=== PATIENT | male | born 1965 | race Caucasian/White ===

== ENCOUNTER → 2016-05-31 | Outpatient (CLI) | payer OTHER | END | disposition home or self-care (01) | LOC: LABWHC1 14:50 | PROVIDERS: ATTEND Student in an Organized Health Care Education/Training Program | DX: L89.324 Pressure ulcer of left buttock, stage 4 (principal) | CPT/HCPCS: 36415; 86141 ==

== ENCOUNTER → 2016-06-20 | Outpatient (CLI) | payer OTHER ==
[2016-06-20 10:42] LABS: Blood Urea Nitrogen 21 mg/dL (9-20); Non-African American GFR(MDRD) >60 (>60 ml/min/1.73 sqM)
== END | disposition home or self-care (01) ==
LOC: RADMRIMAIN 07:08
PROVIDERS: ATTEND Family Medicine
DX: M86.8X8 Other osteomyelitis, other site (principal); Z53.9 Procedure and treatment not carried out, unspecified reason
CPT/HCPCS: 36415; 82565; 84520

== ENCOUNTER → 2016-06-21 | Outpatient (CLI) | payer OTHER ==
--- NOTE | 2016-06-22 11:59 | MR ---
MR pelvis with and without contrast HISTORY: Osteomyelitis Multiplanar multisequence and postcontrast images through the pelvis following 19 cc MultiHance IV. Correlation to prior pelvis MRI 27 June 2015 Abnormal signal again noted within the initial tuberosity on the left, there is abnormal enhancement at this level as on prior exam, skin changes are again noted. Adenopathy in the left groin shows a si milar appearance. IMPRESSION: Findings compatible with osteomyelitis similar to prior exam.
== END | disposition home or self-care (01) ==
LOC: RADMRIMAIN 14:31
PROVIDERS: ATTEND Family Medicine
DX: M86.8X8 Other osteomyelitis, other site (principal)
CPT/HCPCS: 72197; A9577

== ENCOUNTER 2016-10-16 10:26 | Day surgery (SDC) | payer OTHER ==
[2016-10-11 16:11] VITALS: BMI 30.1
[~2016-10-16 10:26] MED LIST: DEXAMETHASONE SOD PHOSPHATE 10 MG/ML 1 ML VIAL IV ONE; HYDROmorphone 1 MG/ML 1 ML SYRINGE IVP PRN; LACTATED RINGERS 1,000 ML IV SCH; ONDANSETRON 4 MG/2 ML VIAL IVP ONE; Pre Op ABX Message 1 EACH MISC MISCELLANE ONE
[2016-10-16] MEDS ORDERED: LIDOCAINE 1% 20 ML VIAL (10MG/ML) FOR IV START INTRADERMA ONE (10:31)
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
[2016-10-16] MEDS ORDERED: LIDOCAINE 1% INJ 10MG/ML (20 ML MDV) ONE (11:30)
[2016-10-16] MEDS ORDERED: GLYCOPYRROLATE 0.2 MG/ML 2 ML VIAL ONE (11:30)
[2016-10-16] MEDS ORDERED: PROPOFOL 10 MG/ML 20 ML VIAL IV ONE (11:30)
[2016-10-16] MEDS ORDERED: MIDAZOLAM 2 MG/2 ML VIAL ONE (11:30)
[2016-10-16] MEDS ORDERED: KETAMINE 10 MG/ML 20 ML VIAL ONE (11:30)
[2016-10-16] MEDS ORDERED: fentaNYL (PF) 50 MCG/ML 2 ML AMP ONE (11:30)
--- NOTE | 2016-10-16 12:02 | P.WCSRGD ---
[facility]tr Surgical Debridement Date of service: 10/16/2016 Surgeon: Alex Pre-and postop diagnosis: Stage IV decubitus involving left ischium Type of debridement: Excisional surgical Chief complaint: ulcer of left buttocks Anesthesia: 2% lidocaine gel applied to the ulcer Signs of infection: Minimal redness Extent of necrotic, devitalized or non-viable tissue: Nonviable soft tissue and bone Other material in the wound that is expected to inhibit healing or promote adjacent tissue breakdown: Same Degree of epithelialization: % Method and instrument: Surgical debridement with sharp curette and rongeur Character of the wound after debridement: Clean bloody subcutaneous bed with bone at the base Description of necrotic material present: Bone and nonviable soft tissue Description of tissue removed: Same Pre-debridement measurement: 2 x 2 cm and 2.5 cm in depth Postoperative debridement measurement: 2.2 cm and 2.5 cm in depth. Specimens were sent for cultures Control of bleeding:Bleeding was easily controlled with saline moistened gauze and light pressure Post debridement dressing: Opticel silver Patient tolerated procedure well
[2016-10-16 12:21] VITALS: TEMP 97.8
[2016-10-16] MEDS ORDERED: HYDROmorphone 1 MG/ML 1 ML SYRINGE IVP ONE ×3 (15:00→15:31)
[2016-10-16 15:44] VITALS: RESP 18
[2016-10-16] MEDS ORDERED: HYDROcodone/APAP 5-325MG 1 EACH TAB PO ONE (17:44)
[2016-10-16 18:55] VITALS: BP 152/71; PULSE 88
== END 2016-10-16 18:45 | disposition home or self-care (01) ==
LOC: OR 10:26
PROVIDERS: ATTEND Thoracic Surgery (Cardiothoracic Vascular Surgery)
DX: L89.324 Pressure ulcer of left buttock, stage 4 (principal); G82.20 Paraplegia, unspecified; Z99.3 Dependence on wheelchair; I25.10 Atherosclerotic heart disease of native coronary artery without angina pectoris; Z95.5 Presence of coronary angioplasty implant and graft; I10 Essential (primary) hypertension; Z86.14 Personal history of Methicillin resistant Staphylococcus aureus infection; Z90.5 Acquired absence of kidney; Z79.899 Other long term (current) drug therapy; Z88.0 Allergy status to penicillin; Z87.891 Personal history of nicotine dependence
CPT/HCPCS: 87070; 87205; 87075; 11044; J1100; J2405; J1170

== ENCOUNTER 2016-11-28 11:27 | Inpatient (IN) | payer OTHER ==
[2016-11-28 12:53] LABS: Basophils # (A) 0.1 k/uL (0-0.2); Basophils % (A) 1 %; CH 29.5; CHCM 32.7; Eosinophils # (A) 0.1 k/uL (0-0.7); Eosinophils % (A) 1 %; HCT 44.6 % (39.0-53.0); HDW 2.45; Luc # (Auto) 0.27; Luc % (Auto) 2; Lymphocytes # (A) 1.9 k/uL (1.0-4.8); Lymphocytes % (A) 17 %; MCH 28.5 pg (25.0-35.0); MCHC 31.5 g/dL (31.0-37.0); MCV 90.6 fL (80.0-100.0); Mean Platelet Volume 7.4; Monocytes # (A) 0.5 k/uL (0-1.0); Monocytes % (A) 5 %; Neutrophils # (A) 8.3 k/uL (1.3-7.7); Neutrophils % (A) 74 %; RBC 4.93 m/uL (4.30-5.90); RDW 15.5 % (11.5-15.5); WBC 11.2 k/uL (3.8-10.6); WBC (Perox) 10.34
[2016-11-28 13:14] LABS: ALT 31 U/L (21-72); AST 21 U/L (17-59); Alkaline Phosphatase 92 U/L (38-126); Anion Gap 9 mmol/L; Blood Urea Nitrogen 19 mg/dL (9-20); Calcium 8.9 mg/dL (8.4-10.2); Carbon Dioxide 25 mmol/L (22-30); Chloride 105 mmol/L (98-107); Glucose 93 mg/dL (74-99); Magnesium 1.9 mg/dL (1.6-2.3); Non-African American GFR(MDRD) >60 (>60 ml/min/1.73 sqM); Potassium 4.4 mmol/L (3.5-5.1); Sodium 139 mmol/L (137-145); Total Bilirubin 0.7 mg/dL (0.2-1.3); Total Protein 6.8 g/dL (6.3-8.2)
[2016-11-28 13:39] LABS: Partial Thromboplastin Time 24.8 sec (22.0-30.0); Prothrombin Time 10.1 sec (9.0-12.0)
--- NOTE | 2016-11-28 13:39 | XR ---
EXAMINATION TYPE: XR chest 2V DATE OF EXAM: 11/28/2016 COMPARISON: 10/07/2013 TECHNIQUE: PA and lateral views submitted. HISTORY: Chest pain FINDINGS: The lungs are clear and there is no pneumothorax, pleural effusion, or focal pneumonia. Hypertrophi c and degenerative change of the spine. Postsurgical change overlying the upper chest. Arthropathy of the shoulders. No overt failure. Biapical pleural thickening. IMPRESSION: 1. No acute process. Stable cardiomegaly.
--- NOTE | 2016-11-28 13:41 | XR ---
EXAMINATION TYPE: XR foot complete LT DATE OF EXAM: 11/28/2016 COMPARISON: NONE HISTORY: Foot swelling TECHNIQUE: Three views are submitted. FINDINGS: Diffuse osteopenia noted with arthropathy of the first MTP joint. There is previous surgery involving the third digit suggestive amputation. Correlate clinically. Soft tissue edema noted diffusely. No d efinite destructive changes. No acute fracture. IMPRESSION: 1. Diffuse soft tissue edema with no acute osseous abnormality. Correlate for cellulitis or nonspecif ic soft tissue edema.
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
--- NOTE | 2016-11-28 14:36 | US ---
EXAMINATION TYPE: US venous doppler duplex LE BI DATE OF EXAM: 11/28/2016 2:15 PM COMPARISON: 10/07/2013 CLINICAL HISTORY: Swelling. SIDE PERFORMED: Bilateral TECHNIQUE: The lower extremity deep venous system is examined utilizing real time linear array sonog roque with graded compression, doppler sonography and color-flow sonography. VESSELS IMAGED: External Iliac Vein (EIV) Common Femoral Vein Deep Femoral Vein Greater Saphenous Vein * Femoral Vein Popliteal Vein Small Saphenous Vein * Proximal Calf Veins (* superficial vessels) Right Leg: Negative for DVT as visualized Left Leg: Negative for DVT as visualized IMPRESSION: Grayscale, color doppler, spectral doppler imaging performed of the deep veins of the lo wer extremities. There is normal flow, compressibility, vascular waveforms. No evidence of deep armen ous thrombosis bilaterally.
[2016-11-28] MEDS ORDERED: FUROSEMIDE 10 MG/ML 10 ML VIAL IV STA (14:59)
[2016-11-28] MEDS ORDERED: SULFAMETH-TMP DS STARTER PACK 2 TAB BTL PO STA (15:03)
[2016-11-28] MEDS ORDERED: LEVOFLOXACIN 750MG-D5W PMX 750 MG in DEXTROSE/WATER 1 150ML.BAG IVPB STA (15:56)
[2016-11-28] MEDS ORDERED: LORazepam 2 MG/ML SYRINGE IV PRN (15:58)
[2016-11-28] MEDS ORDERED: NALOXONE 0.4 MG/ML 1 ML VIAL IV PRN (15:58)
[2016-11-28] MEDS ORDERED: ONDANSETRON 4 MG/2 ML VIAL IVP PRN (15:58)
[2016-11-28] MEDS: SODIUM CHLORIDE 0.9% 1,000 ML IV SCH (16:28)
[2016-11-28] MEDS: KETOROLAC 30 MG/ML 1 ML VIAL IVP PRN ×2 (16:34→23:56)
[2016-11-28 18:40] VITALS: BMI 29.4
[2016-11-28] MEDS: LINEZOLID 600 MG TAB PO SCH (22:25)
[2016-11-28] MEDS: OXYBUTYNIN CHLORIDE 5 MG TAB PO SCH (22:26)
[2016-11-28] MEDS: DOXAZOSIN 1 MG TAB PO SCH (22:26)
[2016-11-28] MEDS: METOPROLOL TARTRATE 50 MG TAB PO SCH (22:26)
[2016-11-28] MEDS: ACETAMINOPHEN TAB 325 MG TAB PO PRN (23:46)
[2016-11-28] MEDS: MORPHINE SULFATE 4 MG/ML SYRINGE IV PRN (23:49)
[2016-11-29] MEDS: SODIUM CHLORIDE 0.9% 1,000 ML IV SCH ×2 (06:03→10:23)
[2016-11-29] MEDS: KETOROLAC 30 MG/ML 1 ML VIAL IVP PRN ×2 (08:46→23:59)
[2016-11-29] MEDS: ENOXAPARIN 40 MG/0.4 ML SYRINGE SQ SCH (08:48)
[2016-11-29] MEDS: amLODIPine 5 MG TAB PO SCH (08:48)
[2016-11-29] MEDS: LINEZOLID 600 MG TAB PO SCH (08:48)
[2016-11-29] MEDS: LISINOPRIL 20 MG TAB PO SCH (08:48)
[2016-11-29] MEDS: PANTOPRAZOLE 40 MG/10 ML VIAL IV SCH (08:49)
[2016-11-29] MEDS: METOPROLOL TARTRATE 50 MG TAB PO SCH ×2 (08:49→20:03)
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
[2016-11-29] MEDS: COLLAGENASE 250 UNIT/GM OINTMENT 30 GM TUBE TOPICAL SCH (17:23)
[2016-11-29] MEDS: ceFAZolin 2 GM in SODIUM CHLORIDE 0.9% 100 ML IVPB SCH ×2 (17:23→23:53)
[2016-11-29] MEDS: FUROSEMIDE 10 MG/ML 2 ML VIAL IV SCH (20:03)
[2016-11-29] MEDS: DOXAZOSIN 1 MG TAB PO SCH (20:03)
[2016-11-29] MEDS: OXYBUTYNIN CHLORIDE 5 MG TAB PO SCH (20:04)
[2016-11-29] MEDS: ACETAMINOPHEN TAB 325 MG TAB PO PRN (20:04)
[2016-11-29] MEDS: MORPHINE SULFATE 4 MG/ML SYRINGE IV PRN (20:04)
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
[2016-11-30] MEDS: ceFAZolin 2 GM in SODIUM CHLORIDE 0.9% 100 ML IVPB SCH ×3 (08:35→23:32)
[2016-11-30] MEDS: PANTOPRAZOLE 40 MG/10 ML VIAL IV SCH (08:35)
[2016-11-30] MEDS: FUROSEMIDE 10 MG/ML 2 ML VIAL IV SCH ×2 (08:35→21:41)
[2016-11-30] MEDS: SODIUM CHLORIDE 0.9% 1,000 ML IV SCH ×2 (08:36→22:21)
[2016-11-30] MEDS: ENOXAPARIN 40 MG/0.4 ML SYRINGE SQ SCH (08:36)
[2016-11-30] MEDS: amLODIPine 5 MG TAB PO SCH (08:36)
[2016-11-30] MEDS: LISINOPRIL 20 MG TAB PO SCH (08:36)
[2016-11-30] MEDS: COLLAGENASE 250 UNIT/GM OINTMENT 30 GM TUBE TOPICAL SCH (08:36)
[2016-11-30] MEDS: METOPROLOL TARTRATE 50 MG TAB PO SCH ×2 (08:36→21:41)
[2016-11-30] MEDS: MORPHINE SULFATE 4 MG/ML SYRINGE IV PRN ×3 (08:39→18:40)
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
[2016-11-30 08:46] LABS: Basophils # (A) 0.1 k/uL (0-0.2); Basophils % (A) 1 %; CH 29.2; CHCM 32.2; Eosinophils # (A) 0.1 k/uL (0-0.7); Eosinophils % (A) 2 %; HCT 40.7 % (39.0-53.0); HDW 2.35; HGB 12.6 gm/dL (13.0-17.5); Luc # (Auto) 0.23; Luc % (Auto) 3; Lymphocytes % (A) 29 %; MCH 28.3 pg (25.0-35.0); MCV 91.2 fL (80.0-100.0); Mean Platelet Volume 7.8; Monocytes # (A) 0.4 k/uL (0-1.0); Monocytes % (A) 5 %; Neutrophils # (A) 4.1 k/uL (1.3-7.7); Neutrophils % (A) 60 %; RBC 4.46 m/uL (4.30-5.90); RDW 15.1 % (11.5-15.5); WBC 6.9 k/uL (3.8-10.6); WBC (Perox) 6.17
[2016-11-30 09:19] LABS: ALT 31 U/L (21-72); AST 17 U/L (17-59); Alkaline Phosphatase 72 U/L (38-126); Anion Gap 6 mmol/L; Blood Urea Nitrogen 27 mg/dL (9-20); Calcium 8.4 mg/dL (8.4-10.2); Carbon Dioxide 28 mmol/L (22-30); Chloride 104 mmol/L (98-107); Glucose 87 mg/dL (74-99); Non-African American GFR(MDRD) >60 (>60 ml/min/1.73 sqM); Potassium 4.8 mmol/L (3.5-5.1); Sodium 138 mmol/L (137-145); Total Bilirubin 0.4 mg/dL (0.2-1.3); Total Protein 6.1 g/dL (6.3-8.2)
--- NOTE | 2016-11-30 09:26 | ECHOF ---
Referral Reason:lower ext swelling MEASUREMENTS -------- HEIGHT: 152.4 cm WEIGHT: 93.0 kg BP: RVIDd: 2.9 cm (< 3.3) IVSd: 1.6 cm (0.6 - 1.1) LVIDd: 4.3 cm (3.9 - 5.3) LVPWd: 1.7 cm (0.6 - 1.1) IVSs: 1.5 cm LVIDs: 3.1 cm LVPWs: 1.5 cm LA Diam: 2.8 cm (2.7 - 3.8) Ao Diam: 3.2 cm (2.0 - 3.7) AV Cusp: 1.9 cm (1.5 - 2.6) LA Diam: 3.0 cm (2.7 - 3.8) MV EXCURSION: 15.662 mm (> 18.000) MV EF SLOPE: 107 mm/s (70 - 150) EPSS: 0.2 cm MV E Huseyin: 0.98 m/s MV DecT: 266 ms MV A Huseyin: 1.09 m/s MV E/A Ratio: 0.89 RAP: 5.00 mmHg RVSP: 27.36 mmHg FINDINGS -------- Sinus rhythm. This was a technically difficult study with suboptimal apical views. There is mild concentric left ventricular hypertrophy. Overall left ventricular systolic function is normal with, an EF between 55 - 60 %. The right ventricle is normal in size. The left atrial size is normal. The right atrial size is normal. There is mild aortic valve sclerosis. There is no evidence of aortic regurgitation. Mild mitral annular calcification present. Mild mitral regurgitation is present. Mild tricuspid regurgitation present. There is no evidence of pulmonary hypertension. The right ventricular systolic pressure, as measured by Doppler, is 27.36mmHg. There is no pulmonic regurgitation present. The aortic root size is normal. Echo free space may represent effusion or a pericardial fat pad. CONCLUSIONS -------- 1. This was a technically difficult study with suboptimal apical views. 2. Echo free space may represent effusion or a pericardial fat pad. 3. There is mild concentric left ventricular hypertrophy. 4. Overall left ventricular systolic function is normal with, an EF between 55 - 60 %. 5. There is mild aortic valve sclerosis. 6. Mild mitral annular calcification present. 7. Mild mitral regurgitation is present. 8. Mild tricuspid regurgitation present. 9. There is no evidence of pulmonary hypertension. 10. The right ventricular systolic pressure, as measured by Doppler, is 27.36mmHg. COMMODITY LEAD: Herminia Jaeger RDCS
--- NOTE | 2016-11-30 17:23 | P.PN ---
Progress Note - Text Consultation was requested for the patient to assess competency, and reviewing the chart the patient this afternoon spoke with the social science instructor and signed papers to obtain a public guardian. I will not complete the consult on this patient, if there is a reason for a psychiatric consultation please reconsult me.
[2016-11-30] MEDS: OXYBUTYNIN CHLORIDE 5 MG TAB PO SCH (21:41)
[2016-11-30] MEDS: DOXAZOSIN 1 MG TAB PO SCH (21:41)
[2016-11-30] MEDS: KETOROLAC 30 MG/ML 1 ML VIAL IVP PRN (21:43)
--- NOTE | 2016-12-01 06:24 | P.PN ---
Progress Note - Text This is a progress note from November 30. This patient was admitted with increasing pedal swelling and cellulitis. We're asked to see the patient to rule out congestive heart failure. Patient chest x-ray did not reveal any significant CHF. His BNP is not elevated. Echo Cardigan showed preserved LV function without any significant valvular abnormalities. It's felt clinically that his edema is non-cardiogenic. If symptoms patient is responding to diuretic therapy. At this point there is no need for any cardiac intervention. Continue current management. Physical examination reveals a gentleman who is paraplegic. Patient seemed to be lying down comfortably without any significant dyspnea to distress. Patient still has significant edema. Heart sounds are regular. Lung examination is difficult but therapy and doesn't appear to be any Sigmund wheezing. Vital signs are reviewed. Final impression: #1. Noncardiogenic edema. #2. Paraplegia #3. Cellulitis # 4 hypertension. Plan: Continue with current management.No specific cardiac intervention is needed
[2016-12-01] MEDS: PANTOPRAZOLE 40 MG TABLET PO SCH (07:56)
[2016-12-01] MEDS: amLODIPine 5 MG TAB PO SCH (07:56)
[2016-12-01] MEDS: METOPROLOL TARTRATE 50 MG TAB PO SCH ×2 (07:56→20:23)
[2016-12-01] MEDS: LISINOPRIL 20 MG TAB PO SCH (07:56)
[2016-12-01] MEDS: FUROSEMIDE 10 MG/ML 2 ML VIAL IV SCH ×2 (07:57→20:23)
[2016-12-01] MEDS: ceFAZolin 2 GM in SODIUM CHLORIDE 0.9% 100 ML IVPB SCH ×3 (07:57→23:09)
[2016-12-01] MEDS: ENOXAPARIN 40 MG/0.4 ML SYRINGE SQ SCH (07:57)
--- NOTE | 2016-12-01 11:07 | PN ---
DATE OF SERVICE: 11/30/16 REASON FOR FOLLOW UP: Left foot cellulitis and left gluteal pressure ulcer. INTERVAL HISTORY: The patient is afebrile. He is breathing comfortably. The patient denies significant chest pain. Occasional cough. No abdominal pain. Pain in the left foot area. On examination, blood pressure 137/98 with a pulse of 69. Temperature 97.5. He is 96% on room air. General description is a middle age male lying in bed in no distress. Respiratory system unlabored breathing. Clear to auscultation anteriorly. Heart S1, S2 regular rate and rhythm. Abdomen soft. No tenderness. Left second toe swelling and redness has improved. LABS: White count normalized to 6.9, BUN 27, creatinine 0.8. DIAGNOSTIC IMPRESSION AND PLAN: 1. The patient with left second toe foot cellulitis likely from gram positive skin maicol, responded to the Cefazolin which will be continued. 2. Left ( ) pressure ulcer. Aquacel silver packing of the wound to keep the area off pressure. [facility]
[2016-12-01] MEDS: SODIUM CHLORIDE 0.9% 1,000 ML IV SCH ×2 (11:25→23:09)
[2016-12-01] MEDS: KETOROLAC 30 MG/ML 1 ML VIAL IVP PRN ×2 (15:21→22:11)
[2016-12-01] MEDS: DOXAZOSIN 1 MG TAB PO SCH (20:23)
[2016-12-01] MEDS: OXYBUTYNIN CHLORIDE 5 MG TAB PO SCH (20:23)
[2016-12-02] MEDS: PANTOPRAZOLE 40 MG TABLET PO SCH (08:05)
[2016-12-02] MEDS: ceFAZolin 2 GM in SODIUM CHLORIDE 0.9% 100 ML IVPB SCH ×2 (08:05→15:33)
[2016-12-02] MEDS: amLODIPine 5 MG TAB PO SCH (08:06)
[2016-12-02] MEDS: ENOXAPARIN 40 MG/0.4 ML SYRINGE SQ SCH (08:06)
[2016-12-02] MEDS: METOPROLOL TARTRATE 50 MG TAB PO SCH ×2 (08:06→20:56)
[2016-12-02] MEDS: FUROSEMIDE 10 MG/ML 2 ML VIAL IV SCH ×2 (08:06→20:56)
[2016-12-02] MEDS: LISINOPRIL 20 MG TAB PO SCH (08:06)
[2016-12-02] MEDS: MORPHINE SULFATE 4 MG/ML SYRINGE IV PRN ×2 (10:14→20:57)
[2016-12-02] MEDS ORDERED: ARTIFICIAL TEARS-HYPROMELLOSE DROPS 15 ML BTL BOTH EYES PRN (12:20)
[2016-12-02 12:35] LABS: Creatine Kinase 30 U/L (55-170)
[2016-12-02 12:47] LABS: Creatine Kinase MB 0.5 ng/mL (0.0-2.4); Troponin I <0.012 ng/mL (0.000-0.034)
--- NOTE | 2016-12-02 14:12 | PN ---
SUBJECTIVE: A white male admitted with congestive heart failure and swelling of his lower extremities. CARDIOVASCULAR: S1, S2. LUNGS: Transmitted upper airway sounds. HEMATOLOGIC: 2+ pedal edema, redness and swelling. ASSESSMENT: 1. Noncardiogenic edema. 2. Paraplegia. 3. Cellulitis. 4. Hypertension. Continue him on IV Kefzol. Continue on antibiotic treatment. Blood pressure control. MTDD
--- NOTE | 2016-12-02 14:36 | PN ---
SUBJECTIVE: This 51-year-old white male with cellulitis of the lower extremities and buttocks, Stage II ulcerations. Blood pressure, hypertension acceleration. Obesity. Generalized debility from a prior spinal cord injury. Unable to ambulate. CARDIOVASCULAR: S1, S2. Lungs clear. GI: Soft. Extremities showed decreased redness and swelling. PLAN: ( ) retirement care will be needed. For sure PT/OT and wound care for decubitus ulcers and cellulitis of the legs will be needed. Please see further orders. MTDD
[2016-12-02] MEDS: SODIUM CHLORIDE 0.9% 1,000 ML IV SCH (15:11)
[2016-12-02] MEDS: ACETAMINOPHEN TAB 325 MG TAB PO PRN ×2 (15:33→20:57)
[2016-12-02] MEDS: DOXAZOSIN 1 MG TAB PO SCH (20:56)
[2016-12-02] MEDS: OXYBUTYNIN CHLORIDE 5 MG TAB PO SCH (20:57)
[2016-12-03] MEDS: ceFAZolin 2 GM in SODIUM CHLORIDE 0.9% 100 ML IVPB SCH ×4 (00:14→23:46)
[2016-12-03] MEDS: KETOROLAC 30 MG/ML 1 ML VIAL IVP PRN (00:20)
[2016-12-03] MEDS: SODIUM CHLORIDE 0.9% 1,000 ML IV SCH ×2 (06:08→17:09)
--- NOTE | 2016-12-03 09:13 | PN ---
DATE OF SERVICE: 12/02/2016 Reason for followup is: 1. Left foot cellulitis. 2. Left hip pressure ulcer. INTERVAL HISTORY: The patient is afebrile, has been breathing comfortably. Denies any significant chest pain, shortness of breath, cough, no abdominal pain or any worsening pain in the left foot area. On examination, blood pressure 132/53 with a pulse of 77, temperature 98.7, he is 93% on room air. General description is an elderly male, lying in bed in no distress. RESPIRATORY SYSTEM: Unlabored breathing, clear to auscultation anteriorly. HEART: S1, S2, regular rate and rhythm. ABDOMEN: Soft, no tenderness. Left foot and second toe swelling and redness has improved. LABS: Hemoglobin 12.6, white count 6.9 with a BUN of 27, creatinine 0.8. DIAGNOSTIC IMPRESSION AND PLAN: 1. Patient with left foot cellulitis, especially involving his second toe. Seem to be responding to cefazolin. Will continue with ( ) with p.o. Keflex. 2. Patient left hip pressure ulcer, continue with Aquacel Silver packing and keep the area off the pressure. [facility]
[2016-12-03] MEDS: ENOXAPARIN 40 MG/0.4 ML SYRINGE SQ SCH (09:18)
[2016-12-03] MEDS: LISINOPRIL 20 MG TAB PO SCH (09:18)
[2016-12-03] MEDS: FUROSEMIDE 10 MG/ML 2 ML VIAL IV SCH ×2 (09:18→21:30)
[2016-12-03] MEDS: amLODIPine 5 MG TAB PO SCH (09:18)
[2016-12-03] MEDS: METOPROLOL TARTRATE 50 MG TAB PO SCH ×2 (09:19→21:30)
[2016-12-03] MEDS: PANTOPRAZOLE 40 MG TABLET PO SCH (09:24)
[2016-12-03] MEDS: MORPHINE SULFATE 4 MG/ML SYRINGE IV PRN ×3 (09:42→21:30)
--- NOTE | 2016-12-03 15:01 | PN ---
DATE OF SERVICE: 12/03/2016 Reason for followup is left foot cellulitis and left gluteal area wound. INTERVAL HISTORY: The patient is afebrile, has been breathing comfortably. Denies significant chest pain, shortness of breath, no cough. No abdominal pain or any diarrhea. On examination, blood pressure 126/57 with a pulse of 57, temperature 97.7, he is 97% on room air. General description if a elderly male lying in bed in no distress. RESPIRATORY SYSTEM: Unlabored breathing, clear to auscultation anteriorly. HEART: S1, S2, regular rate and rhythm. ABDOMEN: Soft, no tenderness. LABS: Hemoglobin 12.6, white count 6.9 with a BUN of 27, creatinine 0.88. DIAGNOSTIC IMPRESSION AND PLAN: 1. Patient with a left foot and second toe cellulitis, overall improvement on the cefazolin. Plan to finish therapy with p.o. Keflex. 2. Patient with a left hip pressure ulcer, stage I. Keep the wound packing with Aquacel Silver. Keep the area off the pressure. [facility]
[2016-12-03] MEDS: ACETAMINOPHEN TAB 325 MG TAB PO PRN (17:45)
[2016-12-03] MEDS: DOXAZOSIN 1 MG TAB PO SCH (21:30)
[2016-12-03] MEDS: OXYBUTYNIN CHLORIDE 5 MG TAB PO SCH (21:30)
[2016-12-04] MEDS ORDERED: ZOLPIDEM 5 MG TAB PO PRN
[2016-12-04] MEDS: SODIUM CHLORIDE 0.9% 1,000 ML IV SCH ×2 (06:05→18:52)
[2016-12-04] MEDS: PANTOPRAZOLE 40 MG TABLET PO SCH (09:11)
[2016-12-04] MEDS: ceFAZolin 2 GM in SODIUM CHLORIDE 0.9% 100 ML IVPB SCH ×3 (09:11→23:49)
[2016-12-04] MEDS: amLODIPine 5 MG TAB PO SCH (09:11)
[2016-12-04] MEDS: FUROSEMIDE 10 MG/ML 2 ML VIAL IV SCH ×2 (09:11→20:17)
[2016-12-04] MEDS: ENOXAPARIN 40 MG/0.4 ML SYRINGE SQ SCH (09:11)
[2016-12-04] MEDS: LISINOPRIL 20 MG TAB PO SCH (09:11)
[2016-12-04] MEDS: METOPROLOL TARTRATE 50 MG TAB PO SCH ×2 (09:11→20:11)
[2016-12-04] MEDS: MORPHINE SULFATE 4 MG/ML SYRINGE IV PRN ×2 (09:19→20:16)
[2016-12-04] MEDS: ACETAMINOPHEN TAB 325 MG TAB PO PRN ×2 (09:19→20:17)
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
--- NOTE | 2016-12-04 14:09 | PN ---
A 51-year-old white male was seen by Dr. Smith today. SUBJECTIVE: A 51-year-old white male was admitted with left gluteal area wound and left foot cellulitis. Having no chest pain, no shortness of breath, no light-headed, dizzy, syncope. CARDIOVASCULAR: S1, S2. LUNGS: Transmitted upper airway sounds. HEMATOLOGIC: Negative Rasheed's. PSYCH: Fair mood and affect. OPHTHALMOLOGIC: Pupils equal, round and reactive to light and accommodation. NEUROLOGIC: Alert and oriented x3. ASSESSMENT: 1. Left hip pressure ulcer Stage I. Continue with Aquacel Silver. 2. Left foot second toe cellulitis improving on cefazolin. Continue with p.o. Keflex. He is unable to take care of himself at home and rehab placement in the next 24 to 48 hours. MANOLO
--- NOTE | 2016-12-04 15:30 | PN ---
DATE OF SERVICE: 12/04/2016 Reason for followup is: 1. Left second toe and foot cellulitis. 2. Left gluteal pressure ulcer. INTERVAL HISTORY: The patient is afebrile. Has been breathing comfortably. Denies significant chest pain, shortness of breath, cough, no abdominal pain. The only pain is in the foot area. On examination, blood pressure is 140/75 with a pulse of 94, temperature 98.2. He is 95% on room air. General description is a middle-aged male lying in bed, in no distress. RESPIRATORY SYSTEM: Unlabored breathing, clear to auscultation anteriorly. HEART: S1, S2 regular rate and rhythm. ABDOMEN: Soft, no tenderness. Left second toe swelling and redness is much improved, back to normal. DIAGNOSTIC IMPRESSION AND PLAN: 1. Patient with left second toe and foot cellulitis. Patient showed overall improvement on cefazolin with the plan to finish therapy with p.o. Keflex for another 10 days. 2. Left gluteal pressure ulcer, continue with Aquacel silver around the wound. [facility] up [facility] the [facility] for Dr. Johnson. MANOLO
[2016-12-04] MEDS: OXYBUTYNIN CHLORIDE 5 MG TAB PO SCH (20:12)
[2016-12-04] MEDS: DOXAZOSIN 1 MG TAB PO SCH (20:12)
[2016-12-05 07:46] VITALS: BP 159/74; PULSE 75; RESP 20; TEMP 97.4
[2016-12-05] MEDS: amLODIPine 5 MG TAB PO SCH (10:19)
[2016-12-05] MEDS: METOPROLOL TARTRATE 50 MG TAB PO SCH (10:19)
[2016-12-05] MEDS: LISINOPRIL 20 MG TAB PO SCH (10:20)
[2016-12-05] MEDS: ENOXAPARIN 40 MG/0.4 ML SYRINGE SQ SCH (10:20)
--- NOTE | 2016-12-05 12:39 | P.ARTDOP ---
Arterial Doppler LOWER EXTREMITY ARTERIAL DOPPLER: DATE OF SERVICE: 11/29/2016 Reason for study: Left foot cellulitis. Doppler waveforms: Multiphasic bilaterally throughout.. Pulse volume recording: Normal configuration. Pressure gradients: Mild gradient above the low thigh. Ankle-brachial indices: 0.89 on the right and 0.90 on the left. 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
--- NOTE | 2016-12-06 09:47 | PN ---
SUBJECTIVE: 51 year old white male with left foot cellulitis, decubitus ulcer Stage IV. Remains on Aquacel silver treatments. IV antibiotics. Will be switched to oral antibiotics. Sent to rehab center. He has no place to live. Cardiovascular: S1, S2. Lungs clear. Psych: Fair mood and affect. PLAN: Switch him over to oral Tramadol. JO Dilaudid. Expect him to be sent to a correction in the next 24 to 48 hours. WADED
== END 2016-12-05 11:35 | DRG 602 ==
LOC: EC 11:27 → EEVIPCON 15:56 → 4MS4W 15:56
PROVIDERS: ADMIT Family Medicine; ATTEND Family Medicine
DX: L03.032 Cellulitis of left toe (principal); L89.324 Pressure ulcer of left buttock, stage 4; L89.221 Pressure ulcer of left hip, stage 1; G82.20 Paraplegia, unspecified; L03.116 Cellulitis of left lower limb; I73.9 Peripheral vascular disease, unspecified; I10 Essential (primary) hypertension; E66.9 Obesity, unspecified; I25.10 Atherosclerotic heart disease of native coronary artery without angina pectoris; I25.2 Old myocardial infarction; Z79.899 Other long term (current) drug therapy; Z86.14 Personal history of Methicillin resistant Staphylococcus aureus infection; Z59.0 Homelessness; Z89.422 Acquired absence of other left toe(s); Z86.73 Personal history of transient ischemic attack (TIA), and cerebral infarction without residual deficits; Z95.5 Presence of coronary angioplasty implant and graft; Z87.891 Personal history of nicotine dependence; Z90.5 Acquired absence of kidney; Z88.0 Allergy status to penicillin
CPT/HCPCS: 36415; 71020; 80053; 82550; 82553; 83735; 83880; 84484; 85025; 85610; 85730; 87040; 93005; 93306; 93923; 93970; 96365; 96375; 99285

== ENCOUNTER 2017-01-24 15:53 | Emergency (ER) | payer OTHER ==
[2017-01-24 16:21] VITALS: RESP 18
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
[2017-01-24 18:30] VITALS: BP 150/71; PULSE 87; TEMP 99.2
[2017-01-24 18:33] LABS: Appearance,Urine Turbid (Clear); Bacteria,Urine Moderate /hpf; Bilirubin,Urine Negative (Negative); Glucose,Urine (UA) Negative (Negative); Ketones,Urine Negative (Negative); Leukocyte Esterase,Urine Large (Negative); Nitrite,Urine Negative (Negative); PH, Urine 5.5 (5.0-8.0); Particle Count 51217; Protein,Urine 1+ (Negative); RBC,Urine 163 /hpf (0-5); Specific Gravity,Urine 1.015 (1.001-1.035); Squamous Epithelial Cell,Urine 1 /hpf (0-4); UA Billing (MACRO vs. MICRO) MICRO; Urobilinogen,Urine <2.0 mg/dL (<2.0); WBC,Urine >182 /hpf (0-5)
[2017-01-24] MEDS ORDERED: CIPROFLOXACIN HCL 500 MG TAB PO STA (18:38)
== END 2017-01-24 18:50 | disposition home or self-care (01) ==
LOC: EC 15:53
DX: N39.0 Urinary tract infection, site not specified (principal); I25.10 Atherosclerotic heart disease of native coronary artery without angina pectoris; I25.2 Old myocardial infarction; I10 Essential (primary) hypertension; Z87.891 Personal history of nicotine dependence; Z79.899 Other long term (current) drug therapy; Z88.0 Allergy status to penicillin; Z87.448 Personal history of other diseases of urinary system; Z90.5 Acquired absence of kidney; Z95.5 Presence of coronary angioplasty implant and graft
CPT/HCPCS: 51702; 51798; 81001; 87077; 87086; 87186; 99284

== ENCOUNTER 2017-04-30 14:41 | Emergency (ER) | payer OTHER ==
[2017-04-30 15:27] VITALS: BP 127/65; PULSE 96; RESP 20; TEMP 97.9
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
[2017-04-30 16:41] LABS: Appearance,Urine Turbid (Clear); Bacteria,Urine Many /hpf; Bilirubin,Urine Negative (Negative); Blood,Urine Moderate (Negative); Budding Yeast,Urine Moderate /hpf; Color,Urine Yellow; Glucose,Urine (UA) Negative (Negative); Ketones,Urine Negative (Negative); Leukocyte Esterase,Urine Large (Negative); Mucus,Urine Few /hpf; Nitrite,Urine Negative (Negative); PH, Urine 5.5 (5.0-8.0); Protein,Urine 2+ (Negative); RBC,Urine 158 /hpf (0-5); Specific Gravity,Urine 1.024 (1.001-1.035); Urobilinogen,Urine <2.0 mg/dL (<2.0); WBC,Urine >182 /hpf (0-5)
== END 2017-04-30 16:52 | disposition home or self-care (01) ==
LOC: EC 14:41
DX: N39.0 Urinary tract infection, site not specified (principal); I25.10 Atherosclerotic heart disease of native coronary artery without angina pectoris; I10 Essential (primary) hypertension; I25.2 Old myocardial infarction; Z86.73 Personal history of transient ischemic attack (TIA), and cerebral infarction without residual deficits; Z86.14 Personal history of Methicillin resistant Staphylococcus aureus infection; Z95.5 Presence of coronary angioplasty implant and graft; Z87.891 Personal history of nicotine dependence; Z79.899 Other long term (current) drug therapy; Z88.0 Allergy status to penicillin
CPT/HCPCS: 81001; 87086; 99284

== ENCOUNTER 2017-10-17 12:33 | Inpatient (IN) | payer OTHER ==
[2017-10-17] MEDS ORDERED: ETOMIDATE 2 MG/ML 10 ML VIAL IVP STA ×2 (12:41→12:45)
[2017-10-17] MEDS ORDERED: SUCCINYLCHOLINE CHLORIDE VIAL 200 MG/10 ML VIAL IV STA (12:52)
[2017-10-17] MEDS ORDERED: MIDAZOLAM 1 MG/ML 5 ML VIAL IV STA (12:52)
[2017-10-17 12:57] LABS: Glucose,Whole Blood 147 mg/dL (75-99)
[2017-10-17] MEDS ORDERED: CLINDAMYCIN 900 MG in DEXTROSE 5% IN WATER 50 ML IVPB STA ×2 (12:57)
[2017-10-17] MEDS ORDERED: cefTRIAXone IN SWFI 2,000 MG/20 ML SYRINGE IVP STA (12:57)
[2017-10-17] MEDS ORDERED: SODIUM CHLORIDE 0.9% 1,000 ML IV STA (12:57)
[2017-10-17] MEDS ORDERED: SODIUM CHLORIDE 0.9% 500 ML IV STA (12:57)
[2017-10-17] MEDS: fentaNYL (PF) 50 MCG/ML 2 ML AMP IVP STA ×2 (13:12→14:13)
[2017-10-17 13:18] LABS: Basophils # (A) 0.1 k/uL (0-0.2); Basophils % (A) 0 %; Eosinophils # (A) 0.2 k/uL (0-0.7); Eosinophils % (A) 1 %; HCT 46.9 % (39.0-53.0); Lymphocytes # (A) 4.5 k/uL (1.0-4.8); Lymphocytes % (A) 27 %; MCH 27.1 pg (25.0-35.0); MCHC 31.9 g/dL (31.0-37.0); MCV 84.9 fL (80.0-100.0); Monocytes # (A) 0.8 k/uL (0-1.0); Monocytes % (A) 5 %; Neutrophils # (A) 10.4 k/uL (1.3-7.7); Neutrophils % (A) 64 %; Platelet Count 312 k/uL (150-450); RBC 5.53 m/uL (4.30-5.90); RDW 14.7 % (11.5-15.5); WBC 16.4 k/uL (3.8-10.6)
[2017-10-17 13:22] LABS: ALT 27 U/L (21-72); AST 28 U/L (17-59); Albumin 3.6 g/dL (3.5-5.0); Alkaline Phosphatase 89 U/L (38-126); Anion Gap 11 mmol/L; Blood Urea Nitrogen 18 mg/dL (9-20); Calcium 8.5 mg/dL (8.4-10.2); Carbon Dioxide 21 mmol/L (22-30); Chloride 113 mmol/L (98-107); Glucose 163 mg/dL (74-99); Sodium 145 mmol/L (137-145); Total Bilirubin 0.6 mg/dL (0.2-1.3); Total Protein 7.1 g/dL (6.3-8.2)
[2017-10-17 13:25] LABS: Potassium 4.1 mmol/L (3.5-5.1)
[2017-10-17] MEDS: PROPOFOL 1,000 MG in EMPTY BAG 1 BAG IV ONE ×2 (13:25→16:12)
--- NOTE | 2017-10-17 13:25 | XR ---
EXAMINATION TYPE: XR chest 1V portable DATE OF EXAM: 10/17/2017 COMPARISON: Chest x-ray November 28, 2016 HISTORY: ET tube placement. TECHNIQUE: Single AP portable frontal supine view of the chest is obtained. FINDINGS: There is new orogastric tube projecting below left hemidiaphragm. There is new endotrachea l tube above clavicles roughly 8 to 9 cm above demetrice, recommend advancing roughly 3 cm. Overlying EKG wires are present. Cardiac silhouette size is stable and enlarged. Prominence of aortic knob is noted. Left suprahilar surgical clips are redemonstrated. There is new central opacity bilat erally. There is elevated right hemidiaphragm redemonstrated. No pneumothorax is seen bilaterally. Ne w left basilar opacity favors atelectasis and/or infiltrate on background of tiny effusion. Multileve l spurring in the mid to lower thoracic spine is redemonstrated. IMPRESSION: 1. New orogastric tube satisfactory in position. 2. Recommend advancing endotracheal tube roughly 3 cm. 3. Cardiomegaly with new moderate right greater than left central edema and/or infiltrates. New tiny left pleural effusion with associated left basilar atelectasis and/or infiltrate.
--- NOTE | 2017-10-17 13:31 | XR ---
EXAMINATION TYPE: XR chest 1V DATE OF EXAM: 10/17/2017 COMPARISON: Prior chest 10/17/2017 and earlier time HISTORY: Reposition endotracheal tube TECHNIQUE: Single frontal view of the chest is obtained. FINDINGS: Interval repositioning of endotracheal tube which is overlying the second thoracic vertebr al body and is approximately 5 to 6 cm from the level of the demetrice. No significant change. IMPRESSION: Interval endotracheal tube repositioning.
[2017-10-17 13:32] LABS: Prothrombin Time 9.7 sec (9.0-12.0)
[2017-10-17 13:40] LABS: Appearance,Urine Turbid (Clear); Bacteria,Urine Many /hpf; Bilirubin,Urine Negative (Negative); Blood,Urine Large (Negative); Color,Urine Light Orange; Glucose,Urine (UA) Negative (Negative); Ketones,Urine Negative (Negative); Leukocyte Esterase,Urine Large (Negative); Mucus,Urine Few /hpf; Nitrite,Urine Negative (Negative); Protein,Urine 2+ (Negative); RBC,Urine >182 /hpf (0-5); Specific Gravity,Urine 1.018 (1.001-1.035); Squamous Epithelial Cell,Urine 4 /hpf (0-4); Urobilinogen,Urine <2.0 mg/dL (<2.0); WBC,Urine >182 /hpf (0-5)
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
[2017-10-17 13:43] LABS: ABG HCO3 23 mmol/L (21-25); ABG PCO2 46 mmHg (35-45); ABG PH 7.32 (7.35-7.45); ABG PO2 199 mmHg (83-108)
[2017-10-17 13:45] LABS: Creatine Kinase MB 1.7 ng/mL (0.0-2.4)
[2017-10-17 13:48] LABS: Troponin I 1.27 ng/mL (0.000-0.034)
[2017-10-17 14:03] LABS: D-Dimer 1.17 mg/L FEU (<0.60); Partial Thromboplastin Time 21.9 sec (22.0-30.0)
[2017-10-17] MEDS ORDERED: LEVOFLOXACIN 750MG-D5W PMX 750 MG in DEXTROSE/WATER 1 150ML.BAG IVPB STA (14:04)
[2017-10-17] MEDS ORDERED: VANCOMYCIN IV PER PHARMACY 1 EACH MISC MISCELLANE PRN (14:04)
[2017-10-17] MEDS ORDERED: HEPARIN SODIUM,PORCINE 5,000 UNIT/ML 1 ML VIAL SQ STA (14:06)
[2017-10-17] MEDS ORDERED: fentaNYL (PF) 50 MCG/ML 2 ML AMP IVP STA (14:11)
[2017-10-17] MEDS ORDERED: VANCOMYCIN 1,750 MG in SODIUM CHLORIDE 0.9% 500 ML IVPB STA (14:14)
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
--- NOTE | 2017-10-17 15:13 | CT ---
EXAMINATION TYPE: CT brain wo con DATE OF EXAM: 10/17/2017 COMPARISON: 04/25/2013 HISTORY: Head pain CT DLP: 882.4 mGycm. Automated Exposure Control for Dose Reduction was Utilized. TECHNIQUE: CT scan of the head is performed without contrast. FINDINGS: There is redemonstration of extra-axial CSF attenuated posterior fossa lesion seen on the left most compatible with an arachnoid cyst with minimal mass effect upon the left cerebellar hemisph ere as seen on the prior exam of 04/25/2013. There is an old lacunar infarct of the right caudate head that is CSF attenuated. There is very mild symmetric prominence of the ventricular system and peripheral sulci compatible with minimal age-relat ed volume loss. There is no acute intracranial hemorrhage, mass effect, or midline shift identified. Calvarium is in tact. 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 S econd smaller possible osteoma seen within the left frontal bone on the same image. Stable right fron julien and left frontal probable osteoma is also seen on series 5 image 25. The globes are intact and th e visualized sinuses are clear. IMPRESSION: No acute intracranial process. Redemonstration of a benign stable posterior fossa left h emispheric arachnoid cyst in old lacunar injury of the right caudate nucleus.
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
[2017-10-17] MEDS ORDERED: HEPARIN SODIUM,PORCINE 5,000 UNIT/ML 1 ML VIAL IV ONE (16:07)
[2017-10-17] MEDS ORDERED: HEPARIN SODIUM,PORCINE 5,000 UNIT/ML 1 ML VIAL IV PRN (16:07)
[2017-10-17] MEDS: HEPARIN SOD,PORK IN 0.45% NACL 25,000 UNIT in 0.45% NACL 1 500ML.BAG IV SCH (16:57)
[2017-10-17] MEDS: IPRATROPIUM-ALBUTEROL 3 ML NEB INHALATION SCH ×2 (18:00→19:17)
[2017-10-17] MEDS: PANTOPRAZOLE 40 MG/10 ML VIAL IVP SCH (18:50)
[2017-10-17 18:54] LABS: Glucose,Whole Blood 140 mg/dL (75-99)
[2017-10-17] MEDS ORDERED: NALOXONE 0.4 MG/ML 1 ML VIAL IV PRN (19:12)
[2017-10-17] MEDS: PROPOFOL 1,000 MG in EMPTY BAG 1 BAG IV SCH ×3 (19:43→23:20)
[2017-10-17] MEDS: MEROPENEM 1 GM in SODIUM CHLORIDE 0.9% 100 ML IVPB SCH (19:45)
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
[2017-10-17 23:06] LABS: Partial Thromboplastin Time 40.9 sec (22.0-30.0); Prothrombin Time 10.2 sec (9.0-12.0)
[2017-10-17 23:46] LABS: HCT 42.6 % (39.0-53.0); HGB 13.3 gm/dL (13.0-17.5); Hypochromasia Slight; MCH 26.7 pg (25.0-35.0); MCHC 31.2 g/dL (31.0-37.0); MCV 85.6 fL (80.0-100.0); Mean Platelet Volume 7.4; Platelet Count 218 k/uL (150-450); RBC 4.97 m/uL (4.30-5.90); RDW 14.8 % (11.5-15.5); WBC 16.6 k/uL (3.8-10.6)
[2017-10-18 01:09] LABS: Band Neutrophils % 14 %; Monocytes # (M) 0.33 k/uL (0-1.0); Neutrophils % (M) 81 %; Nucleated Red Blood Cells 0 /100 WBC (0-0); Total Cells Counted 100
[2017-10-18 01:10] LABS: Anisocytosis (M) Present; Poikilocytosis (M) Present
[2017-10-18 01:11] LABS: Large Platelets Present
[2017-10-18] MEDS: VANCOMYCIN 1,750 MG in SODIUM CHLORIDE 0.9% 500 ML IVPB SCH ×4 (01:30→23:51)
[2017-10-18 04:19] LABS: ABG Base Excess -2.4 mmol/L; ABG HCO3 23 mmol/L (21-25); ABG Oxygen Saturation 99.5 % (94-97); ABG PCO2 40 mmHg (35-45); ABG PH 7.37 (7.35-7.45); ABG PO2 144 mmHg (83-108); ABG TCO2 24 mmol/L (19-24)
[2017-10-18] MEDS: PROPOFOL 1,000 MG in EMPTY BAG 1 BAG IV SCH ×7 (05:08→20:00)
[2017-10-18 06:06] LABS: ALT 32 U/L (21-72); AST 28 U/L (17-59); Albumin 2.7 g/dL (3.5-5.0); Alkaline Phosphatase 71 U/L (38-126); Anion Gap 8 mmol/L; Basophils % (A) 0 %; Blood Urea Nitrogen 16 mg/dL (9-20); Calcium 7.9 mg/dL (8.4-10.2); Carbon Dioxide 19 mmol/L (22-30); Chloride 115 mmol/L (98-107); Eosinophils % (A) 0 %; Glucose 130 mg/dL (74-99); HCT 41.2 % (39.0-53.0); HGB 12.8 gm/dL (13.0-17.5); Hypochromasia Slight; Lymphocytes # (A) 1.2 k/uL (1.0-4.8); Lymphocytes % (A) 7 %; MCH 27.1 pg (25.0-35.0); MCV 87.4 fL (80.0-100.0); Magnesium 1.8 mg/dL (1.6-2.3); Mean Platelet Volume 6.7; Monocytes # (A) 0.6 k/uL (0-1.0); Monocytes % (A) 4 %; Neutrophils # (A) 14.4 k/uL (1.3-7.7); Neutrophils % (A) 88 %; Phosphorus 3.5 mg/dL (2.5-4.5); Platelet Count 221 k/uL (150-450); RBC 4.72 m/uL (4.30-5.90); RDW 14.7 % (11.5-15.5); Sodium 142 mmol/L (137-145); Total Bilirubin 0.3 mg/dL (0.2-1.3); Total Protein 5.7 g/dL (6.3-8.2); WBC 16.3 k/uL (3.8-10.6)
[2017-10-18] MEDS: MEROPENEM 1 GM in SODIUM CHLORIDE 0.9% 100 ML IVPB SCH ×2 (07:04→20:56)
[2017-10-18] MEDS ORDERED: Magnesium Replacement Protocol 1 EACH MISC MISCELLANE PRN (07:06)
[2017-10-18] MEDS: IPRATROPIUM-ALBUTEROL 3 ML NEB INHALATION SCH ×4 (07:29→21:27)
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
[2017-10-18] MEDS ORDERED: MAGNESIUM SULFATE-D5W PMX 1 GM in DEXTROSE/WATER 1 100ML.BAG IVPB SCH (08:00)
[2017-10-18] MEDS: ASPIRIN 325 MG TAB PO SCH (09:28)
[2017-10-18] MEDS: PANTOPRAZOLE 40 MG/10 ML VIAL IVP SCH (09:28)
--- NOTE | 2017-10-18 09:57 | XR ---
EXAMINATION TYPE: XR chest 1V DATE OF EXAM: 10/18/2017 COMPARISON: Prior chest x-ray 10/17/2017 HISTORY: Intubated TECHNIQUE: Single frontal view of the chest is obtained. FINDINGS: Endotracheal tube and NG tube are overlying appropriate positions. Postop changes are agai n seen. There is improvement in bilateral airspace disease. No evident pneumothorax or pleural effusi on. Lung volumes are low and the patient is rotated. There are overlying cardiac leads. IMPRESSION: Improvement in airspace disease, additional follow-up recommended.
--- NOTE | 2017-10-18 11:41 | ECHOF ---
Referral Reason:nstemi MEASUREMENTS -------- HEIGHT: 157.5 cm WEIGHT: 104.8 kg BP: 128/66 IVSd: 1.5 cm (0.6 - 1.1) LVIDd: 4.9 cm (3.9 - 5.3) LVPWd: 1.4 cm (0.6 - 1.1) IVSs: 1.7 cm LVIDs: 3.6 cm LVPWs: 1.9 cm LA Diam: 3.1 cm (2.7 - 3.8) Ao Diam: 3.1 cm (2.0 - 3.7) AV Cusp: 1.8 cm (1.5 - 2.6) LA Diam: 2.9 cm (2.7 - 3.8) MV EXCURSION: 14.751 mm (> 18.000) MV EF SLOPE: 96 mm/s (70 - 150) EPSS: 0.2 cm MV E Huseyin: 0.49 m/s MV DecT: 186 ms MV A Huseyin: 0.47 m/s MV E/A Ratio: 1.05 RAP: 5.00 mmHg RVSP: 26.16 mmHg FINDINGS -------- Sinus rhythm. This was a techncally difficult study with suboptimal views, , Lumason utilized for enhancement of im ages. There is moderate concentric left ventricular hypertrophy. Overall left ventricular systolic functi on is mild-moderately impaired with, an EF between 40 - 45 %. Anterseptal Hypokinesis Inferior Hy pokinesis The right ventricle is normal in size. The left atrial size is normal. The right atrial size is normal. 5.0mg OF Lumason UTLIZED: 2 OR MORE WALL SEGMENTS NOT VISUALIZED. The aortic valve was not well visualized. Mild mitral annular calcification present. Mild mitral regurgitation is present. Mild tricuspid regurgitation present. There is no evidence of pulmonary hypertension. The right v entricular systolic pressure, as measured by Doppler, is 26.16mmHg. The pulmonic valve was not well visualized. The aortic root size is normal. Echo free space represents a pericardial fat pad. CONCLUSIONS -------- 1. This was a techncally difficult study with suboptimal views, , Lumason utilized for enhancement of images. 2. There is moderate concentric left ventricular hypertrophy. 3. Overall left ventricular systolic function is mild-moderately impaired with, an EF between 40 - 45 %. 4. Anterseptal Hypokinesis 5. Inferior Hypokinesis 6. The right ventricle is normal in size. 7. The left atrial size is normal. 8. The right atrial size is normal. 9. 5.0mg OF Lumason UTLIZED: 2 OR MORE WALL SEGMENTS NOT VISUALIZED. 10. The aortic valve was not well visualized. 11. Mild mitral annular calcification present. 12. Mild mitral regurgitation is present. 13. Mild tricuspid regurgitation present. 14. There is no evidence of pulmonary hypertension. 15. The right ventricular systolic pressure, as measured by Doppler, is 26.16mmHg. 16. The pulmonic valve was not well visualized. 17. The aortic root size is normal. 18. Echo free space represents a pericardial fat pad. POLICE OFFICER BOOKING: Herminia Jaeger RDCS
[2017-10-18 12:13] LABS: Urine Alcohol Negative (Negative); Urine Barbiturate Negative (Negative); Urine Cocaine Negative (Negative); Urine Methadone Negative (Negative); Urine Opiates Negative (Negative); Urine Phencyclidine Negative (Negative)
[2017-10-18] MEDS: MAGNESIUM SULFATE-D5W PMX 1 GM in DEXTROSE/WATER 1 100ML.BAG IVPB SCH ×2 (12:56→16:42)
[2017-10-18] MEDS: fentaNYL (PF) 50 MCG/ML 2 ML AMP IV PRN ×3 (12:58→22:54)
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
[2017-10-18] MEDS: METOPROLOL TARTRATE 25 MG TAB PO SCH ×2 (13:22→21:17)
[2017-10-18] MEDS: HEPARIN SOD,PORK IN 0.45% NACL 25,000 UNIT in 0.45% NACL 1 500ML.BAG IV SCH (16:43)
[2017-10-18 18:00] LABS: ABG Base Excess -3.1 mmol/L; ABG HCO3 22 mmol/L (21-25); ABG Oxygen Saturation 98.9 % (94-97); ABG PCO2 38 mmHg (35-45); ABG PH 7.38 (7.35-7.45); ABG PO2 122 mmHg (83-108); ABG TCO2 23 mmol/L (19-24)
[2017-10-18] MEDS ORDERED: FUROSEMIDE 10 MG/ML 10 ML VIAL IV STA (18:47)
[2017-10-18] MEDS ORDERED: PROPOFOL 100 ML IV ONE (19:52)
--- NOTE | 2017-10-18 20:12 | XR ---
EXAMINATION TYPE: XR chest 1V portable DATE OF EXAM: 10/18/2017 COMPARISON: Prior chest x-ray 10/18/2017 HISTORY: Difficulty breathing TECHNIQUE: frontal view of the chest is obtained on 2 images. FINDINGS: There is been interval removal of endotracheal and NG tube. Increased airspace disease has developed in the interval. There are overlying cardiac leads. IMPRESSION: There may be worsening pulmonary edema, pneumonia. Interval extubation.
[2017-10-18 20:50] LABS: ABG Base Excess -3.6 mmol/L; ABG HCO3 22 mmol/L (21-25); ABG Oxygen Saturation 97.8 % (94-97); ABG PCO2 38 mmHg (35-45); ABG PH 7.36 (7.35-7.45); ABG PO2 100 mmHg (83-108); ABG TCO2 23 mmol/L (19-24)
[2017-10-18] MEDS ORDERED: FUROSEMIDE 10 MG/ML 4 ML VIAL IV STA (21:05)
[2017-10-18] MEDS: ATORVASTATIN 80 MG TAB PO SCH (21:17)
--- NOTE | 2017-10-18 21:23 | XR ---
EXAMINATION: XR chest 1V portable at 8:23 PM DATE AND TIME: 10/18/2017 8:30 PM ORDERING PROVIDER: Jean Weir CLINICAL INDICATION: Tube placement TECHNIQUE: AP portable upright COMPARISON: 10/18/2017 at 7:40 PM DESCRIPTION: Since prior study the patient is intubated with the ET tube tip superimposing the mid tr achea just caudal to the level of the clavicular heads. NG tube present, its port projecting over the expected position of the gastric cardia. EKG leads. There is marked airspace filling process throughout the right lung parenchyma and the retrocardiac braeden ng. The left hemidiaphragm is silhouetted consistent with complete airlessness of the left lower lobe . The mediastinum is midline. Cardiac silhouette is unremarkable. There is no pneumothorax or pneumoperitoneum. No acute bone or soft tissue findings. IMPRESSION: POSTINTUBATION CHEST X-RAY WITH SIMILAR OVERALL LUNG INFLATION ABNORMALITIES.
[2017-10-18] MEDS: CHLORHEXIDINE GLUCONATE 15 ML CUP MUCOUS MEM SCH (21:25)
[2017-10-18] MEDS ORDERED: VANCOMYCIN TROUGH DUE 1 EACH MISC MISCELLANE ONE (23:00)
--- NOTE | 2017-10-18 23:24 | PN ---
PROGRESS NOTE SUBJECTIVE: 52-year-old white male with MRSA, altered mentation with BiPAP at home, remains hypertensive, acceleration remains on IV fluids. He is severely septic. Broad spectrum pneumonia in the right lung upper and lower. Consults were reviewed. He is on Merrem, Levaquin, vancomycin, resting comfortably on the ventilator, maintained on IV fluids 100 an hour. White count 16.3. Troponin was elevated. Cardiology is on board. Echo showed ejection fraction 40 to 45%. Recommended beta tiana, aspirin, cholesterol pills, cardiac catheterization down the road as an outpatient. He is on IV heparin per scrap handler. Temp 97.4, pulse 83, respiration 21, blood pressure is 180s over 100., Abdomen soft. Extremities show stage I ulcer left lower extremity, stage III pressure ulcer coccyx. Paraplegia. Neurologic exam: Cardiovascular S1-S2. Lungs scattered rhonchi and wheeze. White count 16.3, hemoglobin is 12.8. Creatinine 0.5. ASSESSMENT AND PLAN: 1. Acute hypoxemic respiratory failure. 2. Right lung upper lobe pneumonia. 3. Continue on Merrem, Levaquin, vancomycin. 4. Hypertension. 5. Sepsis. 6. Continue current treatments. 7. Cardiology as mentioned . 8. Sacral decubitus ulcers. Continue current treatment. 9. Coronary disease with stenting, low ejection fraction, cardiac output. Continue beta tiana, cholesterol pills, aspirin. 10.Continue with Cardiology, Infectious Disease and Pulmonary recommendations. 11.Prognosis is guarded, but he should improve. Progress note in ICU greater than 30 minutes. MMODL / IJN: [id number] /
[2017-10-19] MEDS: PROPOFOL 1,000 MG in EMPTY BAG 1 BAG IV SCH ×10 (00:46→22:31)
[2017-10-19] MEDS: fentaNYL (PF) 50 MCG/ML 2 ML AMP IV PRN (00:50)
[2017-10-19] MEDS: fentaNYL (PF) 2,500 MCG in SODIUM CHLORIDE 0.9% 200 ML IV SCH (02:19)
[2017-10-19 04:38] LABS: ABG Base Excess -1.5 mmol/L; ABG HCO3 23 mmol/L (21-25); ABG Oxygen Saturation 97.7 % (94-97); ABG PCO2 34 mmHg (35-45); ABG PH 7.44 (7.35-7.45); ABG PO2 84 mmHg (83-108); ABG TCO2 24 mmol/L (19-24)
[2017-10-19 06:05] LABS: Basophils % (A) 0 %; Eosinophils % (A) 0 %; HGB 12.7 gm/dL (13.0-17.5); Hypochromasia Moderate; Lymphocytes # (A) 1.9 k/uL (1.0-4.8); Lymphocytes % (A) 20 %; MCHC 31.7 g/dL (31.0-37.0); MCV 88.2 fL (80.0-100.0); Mean Platelet Volume 7.3; Monocytes # (A) 0.7 k/uL (0-1.0); Monocytes % (A) 8 %; Neutrophils # (A) 6.4 k/uL (1.3-7.7); Neutrophils % (A) 69 %; Platelet Count 209 k/uL (150-450); RBC 4.53 m/uL (4.30-5.90); RDW 15.1 % (11.5-15.5); WBC 9.2 k/uL (3.8-10.6)
[2017-10-19 06:21] LABS: ALT 24 U/L (21-72); AST 30 U/L (17-59); Albumin 2.4 g/dL (3.5-5.0); Alkaline Phosphatase 56 U/L (38-126); Anion Gap 5 mmol/L; Blood Urea Nitrogen 17 mg/dL (9-20); Calcium 7.6 mg/dL (8.4-10.2); Carbon Dioxide 21 mmol/L (22-30); Chloride 114 mmol/L (98-107); Glucose 90 mg/dL (74-99); Magnesium 2.1 mg/dL (1.6-2.3); Phosphorus 3.3 mg/dL (2.5-4.5); Sodium 140 mmol/L (137-145); Total Bilirubin 0.3 mg/dL (0.2-1.3); Total Protein 5.1 g/dL (6.3-8.2)
[2017-10-19 06:26] LABS: Vancomycin,Random 25.4 ug/mL
--- NOTE | 2017-10-19 07:00 | XR ---
EXAMINATION TYPE: XR chest 1V portable DATE OF EXAM: 10/19/2017 HISTORY: Tube placement. REFERENCE: Previous study dated 10/18/2017. FINDINGS: The patient is ET tube and NG tube remain in place, unchanged in appearance. There is worsening right upper lobe airspace disease. There is a left basilar airspace disease. There is vascular congestion. The heart is enlarged. I cannot exclude a small left effusion.. IMPRESSION: WORSENING BILATERAL AIRSPACE DISEASE.
--- NOTE | 2017-10-19 08:05 | P.PN ---
Subjective Progress Note Date: 10/19/17 Principal diagnosis: Acute hypoxic respiratory failure The patient is a 50-year-old gentleman who is currently intubated on ventilator and I was asked to see the patient for abnormal cardiac enzymes. Apparently the history was taken from the chart as well as from the nurse taking care of the patient. The patient does have history of coronary artery disease but he does not follow with any director of contracts. Beside that he is a previous smoker. He presented to the emergency room complaining of shortness of breath for the last several days. He was found to be in acute respiratory distress and at that point the patient was intubated. When he presented to the emergency room he was febrile and the chest x-ray showed finding consistent with possible pneumonia. The patient was intubated, started on ventilator, and was started on antibiotic for possible pneumonia. Currently the patient is hemodynamically stable. We get involved in the care of the patient because the cardiac enzymes were checked and came in to be abnormal with abnormal troponin and above 1. The EKG showed sinus rhythm with a Q wave in the anteroseptal leads consistent with prior anterior myocardial infarction with also ST changes in the high lateral leads. On follow-up with the patient today, he seems to be hemodynamically stable. The pressure has been on the low side. Yesterday he was started on aspirin, metoprolol, and statin and he was diagnosed with acute non-ST elevation myocardial infarction. The heparin was started and it was stopped by the critical care team for concern of bleeding. The echocardiogram revealed impaired LV function with EF around 45% and finding of fall motion abnormalities quite concerning for severe underlying coronary artery disease. Giving his troponin which was elevated when he presented to the hospital I am concerned about severe coronary artery disease and the patient does need to have a heart catheterization on the line. Objective - Vital Signs Vital signs: Vital Signs Temp 97.9 F 10/19/17 04:00 Pulse 73 10/19/17 06:30 Resp 21 10/19/17 06:30 BP 109/56 10/19/17 06:30 Pulse Ox 98 10/19/17 06:30 Intake & Output 10/18/17 10/19/17 10/19/17 18:59 06:59 18:59 Intake Total 6152.153 6366.522 26.35 Output Total 820 1345 Balance 1126.661 -130.478 26.35 Weight 105.4 kg Intake: IV 1260 1000 Magnesium Sulfate-D5w Pmx 200 1 gm In Dextrose/Water 1 100ml.bag @ 100 mls/hr IVPB Q1H [facility] Rx#: [id number] Meropenem 1 gm In Sodium 100 Chloride 0.9% 100 ml @ 200 mls/hr IVPB Q12H [facility] Rx#:[id number] Sodium Chloride 0.9% 1, 960 1000 000 ml @ 100 mls/hr IV . Q10H [facility] Rx#:[id number] Intake, IV Titration 686.661 214.522 26.35 Amount Heparin Sod,Pork in 0.45% 338.758 NaCl 25,000 unit In 0.45 % NaCl 1 500ml.bag @ 9.6 UNITS/KG/HR 20.03 mls/hr IV .Q24H [facility] Rx#: [id number] Propofol 1,000 mg In 347.903 Empty Bag 1 bag @ Titrate IV .Q0M [facility] Rx#: [id number] Propofol 1,000 mg In 213.292 Empty Bag 1 bag @ Titrate IV .Q0M [facility] Rx#: [id number] fentaNYL (PF) 2,500 mcg 1.23 26.35 In Sodium Chloride 0.9% 200 ml @ 1 MCG/KG/HR 10. 54 mls/hr IV .[id number] [facility] Rx#:[id number] Output: Urine 820 1345 Other: Voiding Method Indwelling Catheter Indwelling Catheter - Constitutional General appearance: Present: no acute distress - Respiratory Respiratory: bilateral: diminished, wheezing - Cardiovascular Rhythm: regular Heart sounds: normal: S1, S2 - Labs CBC & Chem 7: 10/19/17 05:35 10/19/17 05:35 Labs: Abnormal Lab Results - Last 24 Hours (Table) 10/18/17 10/18/17 10/18/17 Range/Units 02:30 12:05 17:53 Hgb (13.0-17.5) gm/dL ABG pCO2 (35-45) mmHg ABG pO2 122 H (83-108) mmHg ABG O2 Saturation 98.9 H (94-97) % Chloride (98-107) mmol/L Carbon Dioxide (22-30) mmol/L Creatinine (0.66-1.25) mg/dL Calcium (8.4-10.2) mg/dL Troponin I 0.623 H* (0.000-0.034) ng/mL Total Protein (6.3-8.2) g/dL Albumin (3.5-5.0) g/dL Vancomycin Trough ug/mL U Benzodiazepines Scrn Positive H (Negative) ng/mL 10/18/17 10/18/17 10/19/17 Range/Units 20:41 22:29 04:37 Hgb (13.0-17.5) gm/dL ABG pCO2 34 L (35-45) mmHg ABG pO2 (83-108) mmHg ABG O2 Saturation 97.8 H 97.7 H (94-97) % Chloride (98-107) mmol/L Carbon Dioxide (22-30) mmol/L Creatinine (0.66-1.25) mg/dL Calcium (8.4-10.2) mg/dL Troponin I (0.000-0.034) ng/mL Total Protein (6.3-8.2) g/dL Albumin (3.5-5.0) g/dL Vancomycin Trough 39.1 H* ug/mL U Benzodiazepines Scrn (Negative) ng/mL 10/19/17 10/19/17 Range/Units 05:35 05:35 Hgb 12.7 L (13.0-17.5) gm/dL ABG pCO2 (35-45) mmHg ABG pO2 (83-108) mmHg ABG O2 Saturation (94-97) % Chloride 114 H (98-107) mmol/L Carbon Dioxide 21 L (22-30) mmol/L Creatinine 0.60 L (0.66-1.25) mg/dL Calcium 7.6 L (8.4-10.2) mg/dL Troponin I (0.000-0.034) ng/mL Total Protein 5.1 L (6.3-8.2) g/dL Albumin 2.4 L (3.5-5.0) g/dL Vancomycin Trough ug/mL U Benzodiazepines Scrn (Negative) ng/mL Microbiology - Last 24 Hours (Table) 10/17/17 12:59 Blood Culture Gram Stain - Preliminary Blood 10/17/17 12:59 Blood Culture - Final Blood Assessment and Plan Assessment: Assessment #1 acute respiratory failure #2 possible pneumonia #3 acute non-ST deviation myocardial infarction #4 history of coronary artery disease Plan #1 continue the anti-ischemic medication which include aspirin, metoprolol, and statin #2 the echocardiogram was reviewed and described above #3 I am concerned about severe underlying coronary artery disease and an acute coronary event giving his abnormal EKG, abnormal troponin, and an echocardiogram finding with wall motion abnormalities concerning for ischemia. #4 a heart catheterization definitely to be done down the line. Thank you for allowing us participate in his care and we'll continue following up with him
[2017-10-19] MEDS: IPRATROPIUM-ALBUTEROL 3 ML NEB INHALATION SCH ×4 (08:15→20:47)
[2017-10-19] MEDS: MEROPENEM 1 GM in SODIUM CHLORIDE 0.9% 100 ML IVPB SCH ×2 (08:50→18:39)
[2017-10-19] MEDS: PANTOPRAZOLE 40 MG/10 ML VIAL IVP SCH (08:51)
[2017-10-19] MEDS: CHLORHEXIDINE GLUCONATE 15 ML CUP MUCOUS MEM SCH ×2 (08:51→20:46)
[2017-10-19] MEDS: ASPIRIN 325 MG TAB PO SCH (08:51)
[2017-10-19] MEDS: VANCOMYCIN 1,750 MG in SODIUM CHLORIDE 0.9% 500 ML IVPB SCH ×2 (08:54→20:46)
[2017-10-19] MEDS: METOPROLOL TARTRATE 25 MG TAB PO SCH ×2 (08:58→20:46)
[2017-10-19 12:28] LABS: Glucose,Whole Blood 91 mg/dL (75-99)
[2017-10-19] MEDS: INSULIN ASPART 100 UNIT/ML 1 ML 10 ML VIAL SQ SCH ×2 (14:35→18:30)
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
--- NOTE | 2017-10-19 16:11 | PN ---
PROGRESS NOTE Remains on the ventilator in the ICU. He apparently has right upper and right lower lobe pneumonia. He is breathing well on the ventilator at this time. Infectious disease consult has been ordered. Vital signs are reviewed. ABGs reviewed. White count 9.2, hemoglobin 12.7. ASSESSMENT: 1. Right upper and right lower lobe pneumonia. 2. Acute hypoxemic respiratory failure. 3. Stage III pressure ulcer, left buttock. 4. Aspiration pneumonia. 5. Possible urinary tract infection. He is on IV Merrem and vancomycin, which are continued at this time. 6. History of hypertension which is well controlled with beta blockers at this time. He is on cholesterol pills and beta blockers per Cardiology. 7. History of coronary artery disease with stent. Possibly he will need angiogram as an outpatient once cleared up from this infectious process. Await Dr. Russ's and pulmonary recommendations. ICU time 30 minutes. MMISAACL / NAINN: [id number] /
--- NOTE | 2017-10-19 17:45 | XR ---
EXAMINATION TYPE: XR chest 1V portable DATE OF EXAM: 10/19/2017 CLINICAL HISTORY: Central line placement TECHNIQUE: Single AP portable upright view of the chest is obtained. COMPARISON: Chest x-ray from earlier today. FINDINGS: There is new left internal jugular central venous catheter terminating near brachiocephali c confluence. Endotracheal tube and orogastric tube are stable in appearance. There is persistent right upper lung masslike consolidation. There is persistent elevated right hemid iaphragm. There is left basilar opacity silhouetting hemidiaphragm redemonstrated. Cardiac blood size is stable and enlarged. Multilevel spurring in the spine is present. IMPRESSION: 1. New left internal jugular central venous catheter terminating at brachiocephalic confluence. No si zable pneumothorax is seen. 2. Cardiomegaly with right upper lobe focal consolidation and left basilar atelectasis and/or infiltr ate with small left pleural effusion all redemonstrated.
[2017-10-19 18:22] LABS: Glucose,Whole Blood 70 mg/dL (75-99)
[2017-10-19] MEDS: DEXTROSE 5%-0.45% NACL 1,000 ML IV SCH (19:00)
[2017-10-19] MEDS: ATORVASTATIN 80 MG TAB PO SCH (20:46)
[2017-10-19] MEDS ORDERED: COLCHICINE 0.6 MG EACH PO SCH (22:00)
[2017-10-19] MEDS ORDERED: SODIUM CHLORIDE 0.9% 1,000 ML IV ONE (22:32)
[2017-10-20 00:07] LABS: Glucose,Whole Blood 98 mg/dL (75-99)
[2017-10-20] MEDS: INSULIN ASPART 100 UNIT/ML 1 ML 10 ML VIAL SQ SCH ×4 (01:01→18:15)
[2017-10-20] MEDS: PROPOFOL 1,000 MG in EMPTY BAG 1 BAG IV SCH ×9 (01:06→23:53)
[2017-10-20] MEDS: fentaNYL (PF) 2,500 MCG in SODIUM CHLORIDE 0.9% 200 ML IV SCH ×2 (03:31→11:48)
[2017-10-20 05:53] LABS: ABG HCO3 21 mmol/L (21-25); ABG PCO2 36 mmHg (35-45); ABG PH 7.37 (7.35-7.45); ABG PO2 79 mmHg (83-108); ABG TCO2 22 mmol/L (19-24)
[2017-10-20 05:54] LABS: ABG Base Excess -4.4 mmol/L
[2017-10-20 06:14] LABS: Basophils % (A) 0 %; Eosinophils # (A) 0.1 k/uL (0-0.7); Eosinophils % (A) 1 %; HCT 35.4 % (39.0-53.0); HGB 11.3 gm/dL (13.0-17.5); Lymphocytes # (A) 2.1 k/uL (1.0-4.8); Lymphocytes % (A) 27 %; MCH 26.9 pg (25.0-35.0); MCHC 31.8 g/dL (31.0-37.0); MCV 84.7 fL (80.0-100.0); Mean Platelet Volume 7.4; Monocytes # (A) 0.6 k/uL (0-1.0); Monocytes % (A) 7 %; Neutrophils # (A) 5.1 k/uL (1.3-7.7); Neutrophils % (A) 64 %; Platelet Count 181 k/uL (150-450); RBC 4.18 m/uL (4.30-5.90); RDW 15.1 % (11.5-15.5)
[2017-10-20 06:27] LABS: Anion Gap 2 mmol/L; Blood Urea Nitrogen 19 mg/dL (9-20); Calcium 7.1 mg/dL (8.4-10.2); Carbon Dioxide 23 mmol/L (22-30); Chloride 115 mmol/L (98-107); Glucose 125 mg/dL (74-99); Magnesium 1.8 mg/dL (1.6-2.3); Potassium 3.2 mmol/L (3.5-5.1); Sodium 140 mmol/L (137-145)
[2017-10-20 06:34] LABS: Glucose,Whole Blood 94 mg/dL (75-99)
[2017-10-20] MEDS: DEXTROSE 5%-0.45% NACL 1,000 ML IV SCH ×2 (07:18→15:36)
[2017-10-20] MEDS ORDERED: Potassium Replacement Protocol 1 EACH MISC MISCELLANE PRN (07:21)
[2017-10-20] MEDS: MEROPENEM 1 GM in SODIUM CHLORIDE 0.9% 100 ML IVPB SCH ×2 (07:28→18:10)
[2017-10-20] MEDS: IPRATROPIUM-ALBUTEROL 3 ML NEB INHALATION SCH ×4 (07:28→19:09)
--- NOTE | 2017-10-20 08:14 | XR ---
EXAMINATION TYPE: XR chest 1V portable DATE OF EXAM: 10/20/2017 HISTORY: Tube placement. REFERENCE: Previous study dated 10/19/2017. FINDINGS: The patient's ET tube, NG tube and left internal jugular catheter remain in place, unchange d in appearance. There continue to be bibasilar lateral areas of airspace disease most confluent in t he right upper lobe and left lung base. The heart is enlarged. I suspect a small left effusion. IMPRESSION: 1. CONTINUING BILATERAL AIRSPACE DISEASE. 2. CARDIOMEGALY. 3. SMALL LEFT EFFUSION.
--- NOTE | 2017-10-20 08:39 | P.PN ---
Subjective Progress Note Date: 10/20/17 Principal diagnosis: Acute hypoxic respiratory failure The patient is a 50-year-old gentleman who is currently intubated on ventilator and I was asked to see the patient for abnormal cardiac enzymes. Apparently the history was taken from the chart as well as from the nurse taking care of the patient. 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 Beside that he is a previous smoker. He presented to the emergency room complaining of shortness of breath for the last several days. He was found to be in acute respiratory distress and at that point the patient was intubated. When he presented to the emergency room he was febrile and the chest x-ray showed finding consistent with possible pneumonia. The patient was intubated, started on ventilator, and was started on antibiotic for possible pneumonia. Currently the patient is hemodynamically stable. We get involved in the care of the patient because the cardiac enzymes were checked and came in to be abnormal with abnormal troponin and above 1. The EKG showed sinus rhythm with a Q wave in the anteroseptal leads consistent with prior anterior myocardial infarction with also ST changes in the high lateral leads. On follow-up with the patient today, he seems to be hemodynamically stable. The pressure has been on the low side. He is on aspirin, metoprolol, and statin and he was diagnosed with acute non-ST elevation myocardial infarction. The heparin was started and it was stopped by the critical care team for concern of bleeding. The echocardiogram revealed impaired LV function with EF around 45% and finding of fall motion abnormalities quite concerning for severe underlying coronary artery disease. Giving his troponin which was elevated when he presented to the hospital I am concerned about severe coronary artery disease and the patient does need to have a heart catheterization on the line. Objective - Vital Signs Vital signs: Vital Signs Temp 97.8 F 10/20/17 04:00 Pulse 84 10/20/17 07:53 Resp 0 L 10/20/17 07:00 BP 133/69 10/20/17 07:00 Pulse Ox 99 10/20/17 05:30 Intake & Output 10/19/17 10/20/17 10/20/17 18:59 06:59 18:59 Intake Total 2352.668 2728.346 50 Output Total 632 205 Balance 4475.011 7051.346 50 Weight 112.5 kg Intake: IV 1800 1890 15 Dextrose 5%-0.45% NaCl 1, 100 800 000 ml @ 100 mls/hr IV . Q10H [facility] Rx#:[id number] Meropenem 1 gm In Sodium 300 Chloride 0.9% 100 ml @ 200 mls/hr IVPB Q12H [facility] Rx#:[id number] Sodium Chloride 0.9% 1, 900 000 ml @ 100 mls/hr IV . Q10H [facility] Rx#:[id number] Sodium Chloride 0.9% 1, 1090 15 000 ml @ 999 mls/hr IV . Q1H1M [facility] Rx#:[id number] Vancomycin 1,750 mg In 500 Sodium Chloride 0.9% 500 ml @ 167 mls/hr IVPB Q8H [facility] Rx#:[id number] Intake, IV Titration 422.668 413.346 Amount Propofol 1,000 mg In 346.077 413.346 Empty Bag 1 bag @ Titrate IV .Q0M [facility] Rx#: [id number] fentaNYL (PF) 2,500 mcg 76.591 In Sodium Chloride 0.9% 200 ml @ 1 MCG/KG/HR 10. 54 mls/hr IV .[id number] [facility] Rx#:[id number] Tube Feeding 100 425 35 Other 30 Output: Gastric Drainage 250 Urine 382 205 Other: Voiding Method Indwelling Catheter Indwelling Catheter - Constitutional General appearance: Present: mild distress - Respiratory Respiratory: bilateral: rales - Cardiovascular Rhythm: regular Heart sounds: normal: S1, S2 - Labs CBC & Chem 7: 10/20/17 06:00 10/20/17 06:00 Labs: Abnormal Lab Results - Last 24 Hours (Table) 10/19/17 10/20/17 10/20/17 Range/Units 18:20 05:34 06:00 RBC 4.18 L (4.30-5.90) m/uL Hgb 11.3 L (13.0-17.5) gm/dL Hct 35.4 L (39.0-53.0) % ABG pO2 79 L (83-108) mmHg Potassium (3.5-5.1) mmol/L Chloride (98-107) mmol/L Creatinine (0.66-1.25) mg/dL Glucose (74-99) mg/dL POC Glucose (mg/dL) 70 L (75-99) mg/dL Calcium (8.4-10.2) mg/dL 10/20/17 Range/Units 06:00 RBC (4.30-5.90) m/uL Hgb (13.0-17.5) gm/dL Hct (39.0-53.0) % ABG pO2 (83-108) mmHg Potassium 3.2 L (3.5-5.1) mmol/L Chloride 115 H (98-107) mmol/L Creatinine 0.54 L (0.66-1.25) mg/dL Glucose 125 H (74-99) mg/dL POC Glucose (mg/dL) (75-99) mg/dL Calcium 7.1 L (8.4-10.2) mg/dL Microbiology - Last 24 Hours (Table) 10/19/17 12:05 Urine Culture - Preliminary Urine,Catheterized 10/17/17 12:59 Blood Culture Gram Stain - Preliminary Blood Blood Culture - Preliminary Diphtheroid species Assessment and Plan Assessment: Assessment #1 acute respiratory failure #2 possible pneumonia #3 acute non-ST deviation myocardial infarction #4 history of coronary artery disease Plan #1 continue the anti-ischemic medication which include aspirin, metoprolol, and statin #2 the echocardiogram was reviewed and described above #3 I am concerned about severe underlying coronary artery disease and an acute coronary event giving his abnormal EKG, abnormal troponin, and an echocardiogram finding with wall motion abnormalities concerning for ischemia. #4 a heart catheterization definitely to be done down the line. Thank you for allowing us participate in his care and we'll continue following up with him
[2017-10-20] MEDS ORDERED: FUROSEMIDE 10 MG/ML 10 ML VIAL IV STA (08:41)
[2017-10-20] MEDS: POTASSIUM BICARBONATE/CIT AC 20 MEQ TABLET.EFF NG-TUBE SCH ×4 (09:15→20:55)
[2017-10-20] MEDS: ASPIRIN 325 MG TAB PO SCH (10:15)
[2017-10-20] MEDS: METOPROLOL TARTRATE 25 MG TAB PO SCH ×2 (10:15→20:55)
[2017-10-20] MEDS: PANTOPRAZOLE 40 MG/10 ML VIAL IVP SCH (10:16)
[2017-10-20] MEDS: CHLORHEXIDINE GLUCONATE 15 ML CUP MUCOUS MEM SCH ×2 (10:16→20:55)
[2017-10-20] MEDS: VANCOMYCIN 1,750 MG in SODIUM CHLORIDE 0.9% 500 ML IVPB SCH ×2 (10:16→20:55)
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
[2017-10-20 11:50] LABS: Glucose,Whole Blood 95 mg/dL (75-99)
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
[2017-10-20 18:15] LABS: Glucose,Whole Blood 121 mg/dL (75-99)
[2017-10-20] MEDS: ATORVASTATIN 80 MG TAB PO SCH (20:55)
--- NOTE | 2017-10-20 23:27 | PN ---
PROGRESS NOTE In the ICU. He was in respiratory distress. MRSA. Admitted on the vent. He tried to self-extubated twice. He has pneumonia in right upper and lower lobe. On Ditropan. Calm, comfortable when it is used. No seizure activity is seen. Dr. Weir's notes have been seen and reviewed. Remains on Merrem. Chest x-ray shows improvement in pneumonia. Continues on broad-spectrum antibiotics. Prognosis is guarded. White count is improved down to 8. Vital signs reviewed. LUNGS: Transmitted upper sounds. Cardiovascular S1, S2. Hematology negative Hom[place]. Psych: Fair mood and affect. ASSESSMENT: 1. Acute sepsis. 2. Altered mental status. 3. Abnormal EKG and troponin. Possible weaning trials tomorrow. Continue supportive care, broad-spectrum antibiotics. Possibly Lasix due to fluid overload. Await Infectious Disease recommendations. ICU time 30 minutes. MMODL / IJN: [id number] /
[2017-10-21 00:11] LABS: Glucose,Whole Blood 116 mg/dL (75-99)
[2017-10-21] MEDS: INSULIN ASPART 100 UNIT/ML 1 ML 10 ML VIAL SQ SCH ×4 (00:59→18:42)
[2017-10-21] MEDS: DEXTROSE 5%-0.45% NACL 1,000 ML IV SCH ×3 (01:07→20:37)
[2017-10-21 04:46] LABS: Basophils % (A) 0 %; Eosinophils # (A) 0.1 k/uL (0-0.7); Eosinophils % (A) 1 %; HCT 33.6 % (39.0-53.0); HGB 10.8 gm/dL (13.0-17.5); Lymphocytes # (A) 1.7 k/uL (1.0-4.8); Lymphocytes % (A) 22 %; MCH 26.8 pg (25.0-35.0); MCHC 32.1 g/dL (31.0-37.0); MCV 83.5 fL (80.0-100.0); Mean Platelet Volume 7.7; Monocytes # (A) 0.5 k/uL (0-1.0); Monocytes % (A) 6 %; Neutrophils # (A) 5.3 k/uL (1.3-7.7); Neutrophils % (A) 69 %; Platelet Count 208 k/uL (150-450); RBC 4.02 m/uL (4.30-5.90); RDW 15.1 % (11.5-15.5); WBC 7.8 k/uL (3.8-10.6)
[2017-10-21 05:02] LABS: Anion Gap 1 mmol/L; Blood Urea Nitrogen 14 mg/dL (9-20); Calcium 7.3 mg/dL (8.4-10.2); Carbon Dioxide 27 mmol/L (22-30); Chloride 111 mmol/L (98-107); Glucose 110 mg/dL (74-99); Magnesium 1.7 mg/dL (1.6-2.3); Phosphorus 2.6 mg/dL (2.5-4.5); Potassium 3.6 mmol/L (3.5-5.1); Sodium 139 mmol/L (137-145)
[2017-10-21] MEDS ORDERED: POTASSIUM BICARBONATE/CIT AC 20 MEQ TABLET.EFF NG-TUBE SCH (06:00)
[2017-10-21 06:08] LABS: ABG Base Excess 0.7 mmol/L; ABG HCO3 25 mmol/L (21-25); ABG PCO2 39 mmHg (35-45); ABG PH 7.42 (7.35-7.45); ABG PO2 71 mmHg (83-108); ABG TCO2 26 mmol/L (19-24)
[2017-10-21] MEDS: PROPOFOL 1,000 MG in EMPTY BAG 1 BAG IV SCH ×6 (06:20→19:48)
[2017-10-21] MEDS: MAGNESIUM SULFATE-D5W PMX 1 GM in DEXTROSE/WATER 1 100ML.BAG IVPB SCH ×2 (06:23→13:42)
[2017-10-21] MEDS: IPRATROPIUM-ALBUTEROL 3 ML NEB INHALATION SCH ×4 (08:08→19:40)
--- NOTE | 2017-10-21 08:20 | XR ---
EXAMINATION TYPE: XR chest 1V portable DATE OF EXAM: 10/21/2017 COMPARISON: Prior chest 10/20/2017 HISTORY: Intubated TECHNIQUE: Single frontal view of the chest is obtained. FINDINGS: Endotracheal and NG tube are overlying appropriate position, central venous catheter via t he left jugular approach shows the distal tip overlying the superior vena cava region. There are over lying cardiac leads. Airspace disease appears less confluent in the right upper lobe. Persistent biba silar density noted. Exam is expiratory and rotated. No evident pneumothorax. There are overlying car diac leads. Heart size is stable. IMPRESSION: Suspect some improvement in aeration. Additional follow-up recommended.
[2017-10-21] MEDS: MEROPENEM 1 GM in SODIUM CHLORIDE 0.9% 100 ML IVPB SCH ×2 (08:34→18:55)
[2017-10-21] MEDS: ASPIRIN 325 MG TAB PO SCH (08:35)
[2017-10-21] MEDS: PANTOPRAZOLE 40 MG/10 ML VIAL IVP SCH (08:35)
[2017-10-21] MEDS: CHLORHEXIDINE GLUCONATE 15 ML CUP MUCOUS MEM SCH ×2 (08:35→20:36)
[2017-10-21] MEDS: METOPROLOL TARTRATE 25 MG TAB PO SCH ×2 (08:35→20:36)
--- NOTE | 2017-10-21 08:44 | P.PN ---
Subjective Progress Note Date: 10/21/17 Principal diagnosis: Acute hypoxic respiratory failure The patient is a 50-year-old gentleman who is currently intubated on ventilator and I was asked to see the patient for abnormal cardiac enzymes. Apparently the history was taken from the chart as well as from the nurse taking care of the patient. 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 Beside that he is a previous smoker. He presented to the emergency room complaining of shortness of breath for the last several days. He was found to be in acute respiratory distress and at that point the patient was intubated. When he presented to the emergency room he was febrile and the chest x-ray showed finding consistent with possible pneumonia. The patient was intubated, started on ventilator, and was started on antibiotic for possible pneumonia. Currently the patient is hemodynamically stable. We get involved in the care of the patient because the cardiac enzymes were checked and came in to be abnormal with abnormal troponin and above 1. The EKG showed sinus rhythm with a Q wave in the anteroseptal leads consistent with prior anterior myocardial infarction with also ST changes in the high lateral leads. On follow-up with the patient today, he seems to be hemodynamically stable. He is on aspirin, metoprolol, and statin and he was diagnosed with acute non-ST elevation myocardial infarction. The heparin was started and it was stopped by the critical care team for concern of bleeding. The echocardiogram revealed impaired LV function with EF around 45% and finding of fall motion abnormalities quite concerning for severe underlying coronary artery disease. Giving his troponin which was elevated when he presented to the hospital I am concerned about severe coronary artery disease and the patient does need to have a heart catheterization on the line. Objective - Vital Signs Vital signs: Vital Signs Temp 98.4 F 10/21/17 04:00 Pulse 89 10/21/17 08:19 Resp 22 10/21/17 08:19 BP 114/58 10/21/17 07:00 Pulse Ox 96 10/21/17 07:00 Intake & Output 10/20/17 10/21/17 10/21/17 18:59 06:59 18:59 Intake Total 2578.346 2184.875 43.881 Output Total 1825 531 Balance 515.807 9197.875 43.881 Weight 116.1 kg Intake: IV 1615 1367 Dextrose 5%-0.45% NaCl 1, 1100 1200 000 ml @ 100 mls/hr IV . Q10H [facility] Rx#:[id number] Sodium Chloride 0.9% 1, 15 000 ml @ 999 mls/hr IV . Q1H1M [facility] Rx#:[id number] Vancomycin 1,750 mg In 500 167 Sodium Chloride 0.9% 500 ml @ 167 mls/hr IVPB Q8H [facility] Rx#:[id number] Intake, IV Titration 478.346 307.875 43.881 Amount Propofol 1,000 mg In 375.263 307.875 43.881 Empty Bag 1 bag @ Titrate IV .Q0M [facility] Rx#: [id number] fentaNYL (PF) 2,500 mcg 103.083 In Sodium Chloride 0.9% 200 ml @ 1 MCG/KG/HR 10. 54 mls/hr IV .[id number] [facility] Rx#:[id number] Tube Feeding 455 420 Other 30 90 Output: Urine 1825 531 Other: Voiding Method Indwelling Catheter Indwelling Catheter - Constitutional General appearance: Present: no acute distress - Respiratory Respiratory: bilateral: diminished - Cardiovascular Rhythm: regular Heart sounds: normal: S1, S2 - Labs CBC & Chem 7: 10/21/17 04:30 10/21/17 04:30 Labs: Abnormal Lab Results - Last 24 Hours (Table) 10/20/17 10/20/17 10/21/17 Range/Units 15:40 18:14 00:08 RBC (4.30-5.90) m/uL Hgb (13.0-17.5) gm/dL Hct (39.0-53.0) % ABG pO2 (83-108) mmHg ABG Total CO2 (19-24) mmol/L Potassium 3.4 L (3.5-5.1) mmol/L Chloride (98-107) mmol/L Creatinine (0.66-1.25) mg/dL Glucose (74-99) mg/dL POC Glucose (mg/dL) 121 H 116 H (75-99) mg/dL Calcium (8.4-10.2) mg/dL 10/21/17 10/21/17 10/21/17 Range/Units 04:30 04:30 06:01 RBC 4.02 L (4.30-5.90) m/uL Hgb 10.8 L (13.0-17.5) gm/dL Hct 33.6 L (39.0-53.0) % ABG pO2 71 L (83-108) mmHg ABG Total CO2 26 H (19-24) mmol/L Potassium (3.5-5.1) mmol/L Chloride 111 H (98-107) mmol/L Creatinine 0.50 L (0.66-1.25) mg/dL Glucose 110 H (74-99) mg/dL POC Glucose (mg/dL) (75-99) mg/dL Calcium 7.3 L (8.4-10.2) mg/dL Microbiology - Last 24 Hours (Table) 10/19/17 12:05 Urine Culture - Final Urine,Catheterized 10/17/17 12:59 Blood Culture Gram Stain - Final Blood Blood Culture - Final Diphtheroid species Assessment and Plan Assessment: Assessment #1 acute respiratory failure #2 possible pneumonia #3 acute non-ST deviation myocardial infarction #4 history of coronary artery disease Plan #1 continue the anti-ischemic medication which include aspirin, metoprolol, and statin #2 the echocardiogram was reviewed and described above #3 I am concerned about severe underlying coronary artery disease and an acute coronary event giving his abnormal EKG, abnormal troponin, and an echocardiogram finding with wall motion abnormalities concerning for ischemia. #4 a heart catheterization definitely to be done down the line. Thank you for allowing us participate in his care and we'll continue following up with him
[2017-10-21] MEDS: VANCOMYCIN 1,750 MG in SODIUM CHLORIDE 0.9% 500 ML IVPB SCH ×2 (09:41→20:36)
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
[2017-10-21 11:58] LABS: Glucose,Whole Blood 104 mg/dL (75-99)
[2017-10-21] MEDS ORDERED: MAGNESIUM SULFATE-D5W PMX 1 GM in DEXTROSE/WATER 1 100ML.BAG IVPB SCH (12:00)
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
[2017-10-21 18:23] LABS: Glucose,Whole Blood 115 mg/dL (75-99)
[2017-10-21] MEDS: ATORVASTATIN 80 MG TAB PO SCH (20:36)
[2017-10-21] MEDS ORDERED: SENNOSIDES 8.6 MG TAB PO PRN (20:40)
[2017-10-21] MEDS ORDERED: DOCUSATE 100 MG CAP PO SCH (21:00)
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
[2017-10-22 00:20] LABS: Glucose,Whole Blood 105 mg/dL (75-99)
[2017-10-22] MEDS: INSULIN ASPART 100 UNIT/ML 1 ML 10 ML VIAL SQ SCH ×4 (00:39→18:22)
[2017-10-22] MEDS: PROPOFOL 1,000 MG in EMPTY BAG 1 BAG IV SCH ×9 (01:46→23:45)
[2017-10-22 04:39] LABS: Basophils % (A) 0 %; Eosinophils # (A) 0.1 k/uL (0-0.7); Eosinophils % (A) 1 %; HCT 34.9 % (39.0-53.0); HGB 11.1 gm/dL (13.0-17.5); Lymphocytes # (A) 1.5 k/uL (1.0-4.8); Lymphocytes % (A) 16 %; MCHC 31.9 g/dL (31.0-37.0); MCV 84.8 fL (80.0-100.0); Mean Platelet Volume 7.3; Monocytes # (A) 0.6 k/uL (0-1.0); Monocytes % (A) 7 %; Neutrophils # (A) 6.9 k/uL (1.3-7.7); Neutrophils % (A) 74 %; Platelet Count 210 k/uL (150-450); RBC 4.11 m/uL (4.30-5.90); RDW 15.1 % (11.5-15.5); WBC 9.4 k/uL (3.8-10.6)
[2017-10-22 04:56] LABS: Anion Gap 3 mmol/L; Blood Urea Nitrogen 13 mg/dL (9-20); Calcium 7.5 mg/dL (8.4-10.2); Carbon Dioxide 26 mmol/L (22-30); Chloride 107 mmol/L (98-107); Glucose 117 mg/dL (74-99); Phosphorus 2.8 mg/dL (2.5-4.5); Potassium 3.9 mmol/L (3.5-5.1); Sodium 136 mmol/L (137-145)
[2017-10-22] MEDS: POTASSIUM CHLORIDE 10 MEQ in WATER FOR INJECTION 1 100ML.BAG IVPB SCH ×2 (05:15→09:11)
[2017-10-22 05:40] LABS: Glucose,Whole Blood 108 mg/dL (75-99)
[2017-10-22] MEDS: fentaNYL (PF) 2,500 MCG in SODIUM CHLORIDE 0.9% 200 ML IV SCH ×2 (06:57→12:11)
[2017-10-22] MEDS: DEXTROSE 5%-0.45% NACL 1,000 ML IV SCH ×2 (06:59→22:47)
--- NOTE | 2017-10-22 07:58 | XR ---
EXAMINATION TYPE: XR chest 1V portable DATE OF EXAM: 10/22/2017 COMPARISON: Prior chest x-ray 10/21/2017 HISTORY: Intubated TECHNIQUE: Single frontal view of the chest is obtained. FINDINGS: Endotracheal tube and NG tube are overlying appropriate positions. Bibasilar increased den sity persists, the left hemidiaphragm is obscured. Bilateral airspace disease present in the perihila r locations. Some thickening of the minor fissure, right apical pleural thickening is noted. Patient is rotated. Left jugular central venous catheter is stable, distal tip overlying the innominate vein confluence. The superior vena cava. No pneumothorax. IMPRESSION: Findings are similar to prior exam. Correlate for congestive heart failure, pneumonia, A RDS.
[2017-10-22] MEDS ORDERED: VANCOMYCIN TROUGH DUE 1 EACH MISC MISCELLANE ONE (08:00)
[2017-10-22] MEDS: IPRATROPIUM-ALBUTEROL 3 ML NEB INHALATION SCH ×4 (08:10→21:06)
[2017-10-22] MEDS: MEROPENEM 1 GM in SODIUM CHLORIDE 0.9% 100 ML IVPB SCH ×2 (08:10→18:22)
--- NOTE | 2017-10-22 08:17 | P.PN ---
Subjective Progress Note Date: 10/22/17 Principal diagnosis: Acute hypoxic respiratory failure The patient is a 50-year-old gentleman who is currently intubated on ventilator and I was asked to see the patient for abnormal cardiac enzymes. Apparently the history was taken from the chart as well as from the nurse taking care of the patient. The patient does have history of coronary artery disease but he does not follow with any spud sorter. Beside that he is a previous smoker. He presented to the emergency room complaining of shortness of breath for the last several days. He was found to be in acute respiratory distress and at that point the patient was intubated. When he presented to the emergency room he was febrile and the chest x-ray showed finding consistent with possible pneumonia. The patient was intubated, started on ventilator, and was started on antibiotic for possible pneumonia. Currently the patient is hemodynamically stable. We get involved in the care of the patient because the cardiac enzymes were checked and came in to be abnormal with abnormal troponin and above 1. The EKG showed sinus rhythm with a Q wave in the anteroseptal leads consistent with prior anterior myocardial infarction with also ST changes in the high lateral leads. I'll follow-up with the patient today, he continues to be intubated and on ventilator. Hemodynamically he is stable. As a matter of fact every time he goes to wean the pressure goes up. I am going to add lisinopril to the current medical regimen to control the blood pressure. He is on aspirin and statin which we will continue and I am going to add Plavix as well for medical treatment of acute non-ST patient myocardial infarction till we performed a heart catheterization on him. The chest x-ray was reviewed and showed finding consistent with CHF and pneumonia. I am going to add BNP to help us stratify if his finding consistent with CHF or no. The echocardiogram revealed impaired LV function with EF around 45% and finding consistent with acute coronary event. Objective - Vital Signs Vital signs: Vital Signs Temp 99.5 F 10/22/17 04:00 Pulse 91 10/22/17 08:10 Resp 24 10/22/17 07:00 BP 123/76 10/22/17 07:00 Pulse Ox 94 L 10/22/17 07:00 Intake & Output 10/21/17 10/22/17 10/22/17 18:59 06:59 18:59 Intake Total 2862.124 1870.536 143.538 Output Total 685 842 40 Balance 2177.124 1028.536 103.538 Weight 116.1 kg 118.1 kg Intake: IV 1400 1100 100 Dextrose 5%-0.45% NaCl 1, 1200 1100 100 000 ml @ 100 mls/hr IV . Q10H [facility] Rx#:[id number] Meropenem 1 gm In Sodium 200 Chloride 0.9% 100 ml @ 200 mls/hr IVPB Q12H [facility] Rx#:[id number] Intake, IV Titration 912.124 630.536 43.538 Amount Magnesium Sulfate-D5w Pmx 100 1 gm In Dextrose/Water 1 100ml.bag @ 100 mls/hr IVPB Q1H [facility] Rx#: [id number] Propofol 1,000 mg In 228.124 380.536 43.538 Empty Bag 1 bag @ Titrate IV .Q0M [facility] Rx#: [id number] Vancomycin 1,750 mg In 500 Sodium Chloride 0.9% 500 ml @ 167 mls/hr IVPB Q12HR [facility] Rx#:[id number] fentaNYL (PF) 2,500 mcg 84 250 In Sodium Chloride 0.9% 200 ml @ 1 MCG/KG/HR 10. 54 mls/hr IV .[id number] [facility] Rx#:[id number] Tube Feeding 490 140 0 Other 60 Output: Urine 685 842 40 Other: Voiding Method Indwelling Catheter Indwelling Catheter - Constitutional General appearance: Present: no acute distress - Respiratory Respiratory: bilateral: diminished - Cardiovascular Rhythm: regular Heart sounds: normal: S1, S2 - Labs CBC & Chem 7: 10/22/17 04:30 10/22/17 04:30 Labs: Abnormal Lab Results - Last 24 Hours (Table) 10/21/17 10/21/17 10/22/17 Range/Units 11:55 18:22 00:18 RBC (4.30-5.90) m/uL Hgb (13.0-17.5) gm/dL Hct (39.0-53.0) % Sodium (137-145) mmol/L Creatinine (0.66-1.25) mg/dL Glucose (74-99) mg/dL POC Glucose (mg/dL) 104 H 115 H 105 H (75-99) mg/dL Calcium (8.4-10.2) mg/dL 10/22/17 10/22/17 10/22/17 Range/Units 04:30 04:30 05:38 RBC 4.11 L (4.30-5.90) m/uL Hgb 11.1 L (13.0-17.5) gm/dL Hct 34.9 L (39.0-53.0) % Sodium 136 L (137-145) mmol/L Creatinine 0.50 L (0.66-1.25) mg/dL Glucose 117 H (74-99) mg/dL POC Glucose (mg/dL) 108 H (75-99) mg/dL Calcium 7.5 L (8.4-10.2) mg/dL Microbiology - Last 24 Hours (Table) 10/17/17 12:59 Blood Culture - Final Blood 10/17/17 12:59 Blood Culture Gram Stain - Final Blood Blood Culture - Final Diphtheroid species Assessment and Plan Assessment: Assessment #1 acute respiratory failure #2 possible pneumonia #3 acute non-ST deviation myocardial infarction #4 history of coronary artery disease Plan #1 continue the anti-ischemic medication which include aspirin, metoprolol, and statin. Add Plavix and lisinopril. #2 the echocardiogram was reviewed and described above #3 I am concerned about severe underlying coronary artery disease and an acute coronary event giving his abnormal EKG, abnormal troponin, and an echocardiogram finding with wall motion abnormalities concerning for ischemia. #4 a heart catheterization definitely to be done down the line. Thank you for allowing us participate in his care and we'll continue following up with him
[2017-10-22 08:36] LABS: ABG HCO3 24 mmol/L (21-25); ABG PCO2 39 mmHg (35-45); ABG PH 7.41 (7.35-7.45); ABG PO2 60 mmHg (83-108)
[2017-10-22 08:37] LABS: ABG Base Excess 0.4 mmol/L
[2017-10-22] MEDS ORDERED: IV FLUID CONTINUATION 900 ML IV ONE (09:22)
[2017-10-22] MEDS: LISINOPRIL 5 MG TAB PO SCH (09:45)
[2017-10-22] MEDS: ASPIRIN 325 MG TAB PO SCH (09:45)
[2017-10-22] MEDS: CHLORHEXIDINE GLUCONATE 15 ML CUP MUCOUS MEM SCH ×2 (09:45→20:41)
[2017-10-22] MEDS: CLOPIDOGREL 75 MG TAB PO SCH (09:45)
[2017-10-22] MEDS: METOPROLOL TARTRATE 25 MG TAB PO SCH ×2 (09:45→20:57)
[2017-10-22] MEDS: PANTOPRAZOLE 40 MG/10 ML VIAL IVP SCH (09:45)
[2017-10-22] MEDS: HEPARIN SODIUM,PORCINE 5,000 UNIT/ML 1 ML VIAL SQ SCH ×2 (09:45→20:55)
[2017-10-22] MEDS: SENNOSIDES 8.6 MG TAB PO SCH ×2 (09:46→20:57)
[2017-10-22] MEDS: VANCOMYCIN 1,750 MG in SODIUM CHLORIDE 0.9% 500 ML IVPB SCH ×2 (09:46→21:13)
--- NOTE | 2017-10-22 11:38 | PCN ---
PROCEDURE NOTE OPERATIVE REPORT: Bronchoscopy and bronchoalveolar lavage of the right upper lobe. PREOPERATIVE DIAGNOSES: Acute respiratory failure and right upper lobe pneumonia. POSTOPERATIVE DIAGNOSES: Respiratory failure and right upper lobe pneumonia. ANESTHESIA: Patient was already on propofol infusion, and he was already on mechanical ventilation. DESCRIPTION OF PROCEDURE: Patient was placed in a supine position, the endotracheal tube was connected to mechanical ventilation, and an adapter was applied so that we could proceed with a bronchoscopy through the adapter. The patient was already under IV conscious sedation, and the bronchoscope was advanced through the adapter into the endotracheal tube, in the meantime, we were already monitoring the patient with pulse oximetry continuously, blood pressure was also monitored, and cardiac rhythm was monitored continuously. Bronchoscope advanced down to the area of the distal trachea where the tube ended just above the demetrice, there was evidence of thick purulent secretions at the distal end of the endotracheal tube. These were suctioned. Then a thorough examination was done of the distal trachea, demetrice, right upper lobe, right middle lobe, right lower lobe, left upper lobe lingula and left lower lobe. Purulent secretions were noted mostly in the right upper lobe and in the right mainstem bronchus. These were suctioned and lavaged. The other areas of the lungs were noted to be relatively unremarkable except for slightly inflamed and bronchitic mucosa. After lavaging the right upper lobe, the bronchoscope was withdrawn out of the airways, and the fluid was sent for different diagnostic studies. No evidence of any immediate complications. MMODL / IJN: [id number] /
[2017-10-22 12:20] LABS: Glucose,Whole Blood 123 mg/dL (75-99)
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
[2017-10-22 14:55] LABS: Appearance,BF Cloudy; RBC, Body Fluid 6550 /uL
[2017-10-22 14:56] LABS: Nucleated Cells, Body Fluid 800 /uL
[2017-10-22 14:59] LABS: Mononuclear WBC,Body Fluid 8 %; Polynuclear WBC,Body Fluid 92 %; Total Cells Counted,Body Fluid 100
[2017-10-22 18:08] LABS: Glucose,Whole Blood 109 mg/dL (75-99)
[2017-10-22] MEDS: ATORVASTATIN 80 MG TAB PO SCH (20:57)
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
[2017-10-22 23:30] LABS: Glucose,Whole Blood 99 mg/dL (75-99)
--- NOTE | 2017-10-22 23:37 | PN ---
PROGRESS NOTE SUBJECTIVE: This is a 52-year-old white male with respiratory failure, on a ventilator, non- STEMI. Continues to get broad-spectrum antibiotics. Seen by Infectious Disease and Cardiology and Pulmonology. He remains on the ventilator at this time. Vital signs are reviewed. reviewed. He is resting comfortably on the ventilator. CARDIOVASCULAR: S1, S2. LUNGS: Scattered rhonchi. Wheeze. HEMATOLOGY: Negative Homans. ASSESSMENT: 1. Acute hypoxemic respiratory failure secondary to aspiration pneumonia. 2. Sepsis. 3. Decubitus ulcers. 4. History of paralysis. 5. Metabolic encephalopathy. Continue current treatments. Follow up in the next 24 to 48 hours. ICU time less than 30 minutes. MMODL / IJN: [id number] /
[2017-10-23] MEDS: PROPOFOL 1,000 MG in EMPTY BAG 1 BAG IV SCH ×6 (03:00→23:46)
[2017-10-23] MEDS: INSULIN ASPART 100 UNIT/ML 1 ML 10 ML VIAL SQ SCH ×4 (04:18→19:32)
[2017-10-23 04:54] LABS: Basophils % (A) 0 %; Eosinophils # (A) 0.1 k/uL (0-0.7); Eosinophils % (A) 2 %; HCT 32.8 % (39.0-53.0); HGB 10.4 gm/dL (13.0-17.5); Lymphocytes # (A) 1.2 k/uL (1.0-4.8); Lymphocytes % (A) 13 %; MCH 26.8 pg (25.0-35.0); MCHC 31.8 g/dL (31.0-37.0); MCV 84.2 fL (80.0-100.0); Mean Platelet Volume 7.6; Monocytes # (A) 0.8 k/uL (0-1.0); Monocytes % (A) 9 %; Neutrophils % (A) 74 %; Platelet Count 197 k/uL (150-450); RDW 15.2 % (11.5-15.5); WBC 9.5 k/uL (3.8-10.6)
[2017-10-23 05:11] LABS: ALT 39 U/L (21-72); AST 41 U/L (17-59); Albumin 2.1 g/dL (3.5-5.0); Alkaline Phosphatase 95 U/L (38-126); Anion Gap 3 mmol/L; Blood Urea Nitrogen 12 mg/dL (9-20); Calcium 7.6 mg/dL (8.4-10.2); Carbon Dioxide 26 mmol/L (22-30); Chloride 108 mmol/L (98-107); Glucose 117 mg/dL (74-99); Magnesium 1.9 mg/dL (1.6-2.3); Phosphorus 2.9 mg/dL (2.5-4.5); Potassium 4.2 mmol/L (3.5-5.1); Sodium 137 mmol/L (137-145); Total Bilirubin 0.6 mg/dL (0.2-1.3); Total Protein 4.8 g/dL (6.3-8.2)
[2017-10-23 05:42] LABS: Glucose,Whole Blood 120 mg/dL (75-99)
[2017-10-23] MEDS: MEROPENEM 1 GM in SODIUM CHLORIDE 0.9% 100 ML IVPB SCH ×2 (06:28→19:33)
[2017-10-23] MEDS: MAGNESIUM SULFATE-D5W PMX 1 GM in DEXTROSE/WATER 1 100ML.BAG IVPB SCH ×2 (06:32→13:51)
--- NOTE | 2017-10-23 07:43 | XR ---
EXAMINATION TYPE: XR chest 1V portable DATE OF EXAM: 10/23/2017 COMPARISON: Prior chest 10/22/2017 HISTORY: Intubated TECHNIQUE: Single frontal view of the chest is obtained. FINDINGS: Findings do not show significant interval change compared to prior. Bilateral airspace dis ease. Tubes and line are stable. Heart remains enlarged. No sizable effusion. IMPRESSION: Correlate for ARDS, congestive heart failure, pneumonia.
[2017-10-23 07:53] LABS: ABG Base Excess 0.6 mmol/L; ABG HCO3 25 mmol/L (21-25); ABG Oxygen Saturation 91.3 % (94-97); ABG PCO2 38 mmHg (35-45); ABG PH 7.42 (7.35-7.45); ABG PO2 59 mmHg (83-108); ABG TCO2 26 mmol/L (19-24)
--- NOTE | 2017-10-23 08:14 | P.PN ---
Subjective Progress Note Date: 10/23/17 Principal diagnosis: Acute hypoxic respiratory failure The patient is a 50-year-old gentleman who is currently intubated on ventilator and I was asked to see the patient for abnormal cardiac enzymes. Apparently the history was taken from the chart as well as from the nurse taking care of the patient. 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 Beside that he is a previous smoker. He presented to the emergency room complaining of shortness of breath for the last several days. He was found to be in acute respiratory distress and at that point the patient was intubated. When he presented to the emergency room he was febrile and the chest x-ray showed finding consistent with possible pneumonia. The patient was intubated, started on ventilator, and was started on antibiotic for possible pneumonia. Currently the patient is hemodynamically stable. We get involved in the care of the patient because the cardiac enzymes were checked and came in to be abnormal with abnormal troponin and above 1. The EKG showed sinus rhythm with a Q wave in the anteroseptal leads consistent with prior anterior myocardial infarction with also ST changes in the high lateral leads. On follow-up with the patient today, he continues to be intubated on ventilator. Hemodynamically he continues to be stable. Yesterday I did add lisinopril to the current medical regimen to control the blood pressure. Beside that he is on aspirin as well as statin as well as Plavix. The echocardiogram revealed impaired FUNCTION with EF around 45% and finding consistent with severe underlying coronary artery disease based on wall motion abnormalities concerning for ischemia. He definitely need to have a heart catheterization down the line. Objective - Vital Signs Vital signs: Vital Signs Temp 98.4 F 10/23/17 04:00 Pulse 96 10/23/17 07:00 Resp 23 10/23/17 07:00 BP 136/71 10/23/17 07:00 Pulse Ox 92 L 10/23/17 07:00 Intake & Output 10/22/17 10/23/17 10/23/17 18:59 06:59 18:59 Intake Total 2236.798 2260.180 220 Output Total 925 785 75 Balance 7688.744 8765.180 145 Weight 122.2 kg Intake: IV 1637.9 1458.9 200 Dextrose 5%-0.45% NaCl 1, 750 850 000 ml @ 100 mls/hr IV . Q10H [facility] Rx#:[id number] Magnesium Sulfate-D5w Pmx 100 1 gm In Dextrose/Water 1 100ml.bag @ 100 mls/hr IVPB Q1H [facility] Rx#: [id number] Meropenem 1 gm In Sodium 100 100 100 Chloride 0.9% 100 ml @ 200 mls/hr IVPB Q12H [facility] Rx#:[id number] Potassium Chloride 10 meq 100 In Water For Injection 1 100ml.bag @ 100 mls/hr IVPB Q1H [facility] Rx#: [id number] Vancomycin 1,750 mg In 501 501 Sodium Chloride 0.9% 500 ml @ 167 mls/hr IVPB Q12HR [facility] Rx#:[id number] fentaNYL (PF) 2,500 mcg 86.9 7.9 In Sodium Chloride 0.9% 200 ml @ 1 MCG/KG/HR 10. 54 mls/hr IV .[id number] [facility] Rx#:[id number] Intake, IV Titration 368.898 391.280 Amount Propofol 1,000 mg In 327.555 391.280 Empty Bag 1 bag @ Titrate IV .Q0M [facility] Rx#: [id number] fentaNYL (PF) 2,500 mcg 41.343 In Sodium Chloride 0.9% 200 ml @ 1 MCG/KG/HR 10. 54 mls/hr IV .[id number] [facility] Rx#:[id number] Tube Feeding 120 320 20 Other 110 90 Output: Urine 925 785 75 Other: Voiding Method Indwelling Catheter Indwelling Catheter - Constitutional General appearance: Present: no acute distress - Respiratory Respiratory: bilateral: rales - Cardiovascular Rhythm: regular Heart sounds: normal: S1, S2 - Labs CBC & Chem 7: 10/23/17 04:38 10/23/17 04:38 Labs: Abnormal Lab Results - Last 24 Hours (Table) 10/22/17 10/22/17 10/22/17 Range/Units 08:23 12:18 18:06 RBC (4.30-5.90) m/uL Hgb (13.0-17.5) gm/dL Hct (39.0-53.0) % ABG pO2 60 L (83-108) mmHg Chloride (98-107) mmol/L Creatinine (0.66-1.25) mg/dL Glucose (74-99) mg/dL POC Glucose (mg/dL) 123 H 109 H (75-99) mg/dL Calcium (8.4-10.2) mg/dL Total Protein (6.3-8.2) g/dL Albumin (3.5-5.0) g/dL 10/23/17 10/23/17 10/23/17 Range/Units 04:38 04:38 05:40 RBC 3.90 L (4.30-5.90) m/uL Hgb 10.4 L (13.0-17.5) gm/dL Hct 32.8 L (39.0-53.0) % ABG pO2 (83-108) mmHg Chloride 108 H (98-107) mmol/L Creatinine 0.40 L (0.66-1.25) mg/dL Glucose 117 H (74-99) mg/dL POC Glucose (mg/dL) 120 H (75-99) mg/dL Calcium 7.6 L (8.4-10.2) mg/dL Total Protein 4.8 L (6.3-8.2) g/dL Albumin 2.1 L (3.5-5.0) g/dL Microbiology - Last 24 Hours (Table) 10/22/17 09:40 Acid Fast Bacilli Smear - Final Bronchial Washings - Right Acid Fast Bacilli Culture - Preliminary 10/22/17 09:40 Gram Stain - Preliminary Bronchial Washings - Right Bronchial Washings Culture - Preliminary 10/22/17 09:40 Fungal Culture - Preliminary Bronchial Washings - Right Assessment and Plan Assessment: Assessment #1 acute respiratory failure #2 possible pneumonia #3 acute non-ST deviation myocardial infarction #4 history of coronary artery disease Plan #1 continue the anti-ischemic medication which include aspirin, metoprolol, and statin. Yesterday we did add Plavix as well as lisinopril. #2 the echocardiogram was reviewed and described above #3 I am concerned about severe underlying coronary artery disease and an acute coronary event giving his abnormal EKG, abnormal troponin, and an echocardiogram finding with wall motion abnormalities concerning for ischemia. #4 a heart catheterization definitely to be done down the line. Thank you for allowing us participate in his care and we'll continue following up with him
[2017-10-23] MEDS: VANCOMYCIN 1,750 MG in SODIUM CHLORIDE 0.9% 500 ML IVPB SCH ×2 (08:34→20:49)
[2017-10-23] MEDS: DEXTROSE 5%-0.45% NACL 1,000 ML IV SCH ×3 (08:34→23:47)
[2017-10-23] MEDS: ASPIRIN 325 MG TAB PO SCH (08:34)
[2017-10-23] MEDS: METOPROLOL TARTRATE 25 MG TAB PO SCH ×2 (08:35→23:47)
[2017-10-23] MEDS: CHLORHEXIDINE GLUCONATE 15 ML CUP MUCOUS MEM SCH ×2 (08:35→20:49)
[2017-10-23] MEDS: SENNOSIDES 8.6 MG TAB PO SCH ×2 (08:35→21:51)
[2017-10-23] MEDS: LISINOPRIL 5 MG TAB PO SCH (08:35)
[2017-10-23] MEDS: HEPARIN SODIUM,PORCINE 5,000 UNIT/ML 1 ML VIAL SQ SCH ×2 (08:35→20:49)
[2017-10-23] MEDS: CLOPIDOGREL 75 MG TAB PO SCH (08:35)
[2017-10-23] MEDS: PANTOPRAZOLE 40 MG/10 ML VIAL IVP SCH (08:35)
[2017-10-23] MEDS: IPRATROPIUM-ALBUTEROL 3 ML NEB INHALATION SCH ×4 (08:46→19:45)
[2017-10-23 12:24] LABS: Glucose,Whole Blood 139 mg/dL (75-99)
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
[2017-10-23] MEDS: FUROSEMIDE 10 MG/ML 4 ML VIAL IV SCH ×2 (15:19→23:47)
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
[2017-10-23] MEDS ORDERED: hydrALAZINE HCL 20 MG/ML 1 ML VIAL IVP PRN (16:49)
[2017-10-23] MEDS ORDERED: ACETAMINOPHEN TAB 325 MG TAB PO PRN (17:18)
[2017-10-23 17:53] LABS: Glucose,Whole Blood 101 mg/dL (75-99)
[2017-10-23] MEDS: fentaNYL (PF) 2,500 MCG in SODIUM CHLORIDE 0.9% 200 ML IV SCH (18:24)
[2017-10-23] MEDS: ATORVASTATIN 80 MG TAB PO SCH (20:49)
[2017-10-23] MEDS ORDERED: POTASSIUM BICARBONATE/CIT AC 20 MEQ TABLET.EFF NG-TUBE SCH (22:00)
[2017-10-24 00:05] LABS: Glucose,Whole Blood 96 mg/dL (75-99)
--- NOTE | 2017-10-24 01:00 | PN ---
PROGRESS NOTE SUBJECTIVE: A 52-year-old white male with acute hypoxemic respiratory failure, right upper lobe pneumonia, aspiration pneumonia, had to go back up on his PEEP as he is unable to wean off the ventilator today. Definite worsening on his chest x-ray and ABGs are worse, possibly ARDS. He is going to get a trach and PEG later this week. Give furosemide for possible diastolic heart failure with systolic heart failure. Temp 98.7, pulse 90, respiratory rate 18 to 20, blood pressure 101/60, O2 93%. CARDIOVASCULAR: S1, S2. LUNGS: Scattered rhonchi and wheeze. HEMATOLOGY: Negative Homans. ABDOMEN: Soft. Labs are reviewed. ICU notes are reviewed. ASSESSMENT: 1. Right upper and lower lobe pneumonia. 2. Acute hypoxemic respiratory status, possibly ARDS. Scheduled for trach and PEG. Broad-spectrum antibiotics. 3. Paraplegia. 4. Stage 3-4 sacral decubitus ulcers. 5. Coronary artery disease, status post stent. 6. History of left nephrectomy. Continue nutrition, antibiotics and DVT recommendations. Dr. Johnson consulted for trach for next week. ICU time 30 minutes. MMISAACL / NAINN: [id number] /
[2017-10-24] MEDS: INSULIN ASPART 100 UNIT/ML 1 ML 10 ML VIAL SQ SCH ×4 (01:30→18:02)
[2017-10-24] MEDS: PROPOFOL 1,000 MG in EMPTY BAG 1 BAG IV SCH ×5 (04:26→18:59)
[2017-10-24 06:07] LABS: Basophils % (A) 0 %; Eosinophils # (A) 0.1 k/uL (0-0.7); Eosinophils % (A) 2 %; HGB 10.3 gm/dL (13.0-17.5); Lymphocytes # (A) 1.2 k/uL (1.0-4.8); Lymphocytes % (A) 14 %; MCH 26.9 pg (25.0-35.0); MCHC 32.1 g/dL (31.0-37.0); Mean Platelet Volume 7.8; Monocytes # (A) 0.7 k/uL (0-1.0); Monocytes % (A) 8 %; Neutrophils # (A) 6.1 k/uL (1.3-7.7); Neutrophils % (A) 73 %; Platelet Count 249 k/uL (150-450); RBC 3.81 m/uL (4.30-5.90); WBC 8.3 k/uL (3.8-10.6)
[2017-10-24 06:12] LABS: Anion Gap 4 mmol/L; Blood Urea Nitrogen 13 mg/dL (9-20); Calcium 7.4 mg/dL (8.4-10.2); Carbon Dioxide 28 mmol/L (22-30); Chloride 105 mmol/L (98-107); Glucose 119 mg/dL (74-99); Magnesium 1.9 mg/dL (1.6-2.3); Potassium 3.8 mmol/L (3.5-5.1); Sodium 137 mmol/L (137-145)
[2017-10-24 06:23] LABS: Glucose,Whole Blood 101 mg/dL (75-99)
[2017-10-24] MEDS: MEROPENEM 1 GM in SODIUM CHLORIDE 0.9% 100 ML IVPB SCH (06:50)
[2017-10-24] MEDS ORDERED: POTASSIUM BICARBONATE/CIT AC 20 MEQ TABLET.EFF NG-TUBE SCH ×2 (07:00→17:00)
[2017-10-24 07:37] LABS: ABG Base Excess 3.4 mmol/L; ABG HCO3 27 mmol/L (21-25); ABG Oxygen Saturation 94.2 % (94-97); ABG PCO2 38 mmHg (35-45); ABG PH 7.47 (7.35-7.45); ABG PO2 66 mmHg (83-108); ABG TCO2 28 mmol/L (19-24)
--- NOTE | 2017-10-24 08:08 | P.PN ---
Subjective Progress Note Date: 10/24/17 Principal diagnosis: Acute hypoxic respiratory failure The patient is a 50-year-old gentleman who is currently intubated on ventilator and I was asked to see the patient for abnormal cardiac enzymes. Apparently the history was taken from the chart as well as from the nurse taking care of the patient. 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 Beside that he is a previous smoker. He presented to the emergency room complaining of shortness of breath for the last several days. He was found to be in acute respiratory distress and at that point the patient was intubated. When he presented to the emergency room he was febrile and the chest x-ray showed finding consistent with possible pneumonia. The patient was intubated, started on ventilator, and was started on antibiotic for possible pneumonia. Currently the patient is hemodynamically stable. We get involved in the care of the patient because the cardiac enzymes were checked and came in to be abnormal with abnormal troponin and above 1. The EKG showed sinus rhythm with a Q wave in the anteroseptal leads consistent with prior anterior myocardial infarction with also ST changes in the high lateral leads. On follow-up with the patient today, he continues to be intubated on ventilator. Hemodynamically he continues to be stable. He is on aspirin, metoprolol, a syncopal, and statin. The Plavix was held because the patient is going to have a PEG and trach tube if in the next few days. The echocardiogram showed wall motion abnormalities concerning for severe underlying coronary artery disease. The patient failed weaning. He needs to have a heart catheterization down the line. Objective - Vital Signs Vital signs: Vital Signs Temp 98.6 F 10/24/17 05:00 Pulse 99 10/24/17 07:00 Resp 29 H 10/24/17 07:00 BP 121/57 10/24/17 07:00 Pulse Ox 93 L 10/24/17 07:00 Intake & Output 10/23/17 10/24/17 10/24/17 18:59 06:59 18:59 Intake Total 2181.973 1721.392 260 Output Total 2465 2050 160 Balance -283.027 -328.608 100 Weight 121.8 kg Intake: IV 1551 1050 200 Dextrose 5%-0.45% NaCl 1, 750 550 100 000 ml @ 50 mls/hr IV . Q20H [facility] Rx#:[id number] Magnesium Sulfate-D5w Pmx 200 1 gm In Dextrose/Water 1 100ml.bag @ 100 mls/hr IVPB Q1H [facility] Rx#: [id number] Meropenem 1 gm In Sodium 100 100 Chloride 0.9% 100 ml @ 200 mls/hr IVPB Q12H [facility] Rx#:[id number] Vancomycin 1,750 mg In 501 500 Sodium Chloride 0.9% 500 ml @ 167 mls/hr IVPB Q12HR [facility] Rx#:[id number] Intake, IV Titration 330.973 391.392 Amount Propofol 1,000 mg In 92.261 391.392 Empty Bag 1 bag @ Titrate IV .Q0M [facility] Rx#: [id number] fentaNYL (PF) 2,500 mcg 238.712 In Sodium Chloride 0.9% 200 ml @ 1 MCG/KG/HR 10. 54 mls/hr IV .[id number] [facility] Rx#:[id number] Tube Feeding 240 220 60 Other 60 60 Output: Urine 2465 2050 160 Other: Voiding Method Indwelling Catheter Indwelling Catheter - Constitutional General appearance: Present: no acute distress - Respiratory Respiratory: bilateral: diminished - Cardiovascular Rhythm: regular Heart sounds: normal: S1, S2 - Labs CBC & Chem 7: 10/24/17 04:15 10/24/17 04:15 Labs: Abnormal Lab Results - Last 24 Hours (Table) 10/23/17 10/23/17 10/23/17 Range/Units 07:51 12:23 17:52 RBC (4.30-5.90) m/uL Hgb (13.0-17.5) gm/dL Hct (39.0-53.0) % ABG pH (7.35-7.45) ABG pO2 59 L (83-108) mmHg ABG HCO3 (21-25) mmol/L ABG Total CO2 26 H (19-24) mmol/L ABG O2 Saturation 91.3 L (94-97) % Creatinine (0.66-1.25) mg/dL Glucose (74-99) mg/dL POC Glucose (mg/dL) 139 H 101 H (75-99) mg/dL Calcium (8.4-10.2) mg/dL 10/24/17 10/24/17 10/24/17 Range/Units 04:15 04:15 06:20 RBC 3.81 L (4.30-5.90) m/uL Hgb 10.3 L (13.0-17.5) gm/dL Hct 32.0 L (39.0-53.0) % ABG pH (7.35-7.45) ABG pO2 (83-108) mmHg ABG HCO3 (21-25) mmol/L ABG Total CO2 (19-24) mmol/L ABG O2 Saturation (94-97) % Creatinine 0.52 L (0.66-1.25) mg/dL Glucose 119 H (74-99) mg/dL POC Glucose (mg/dL) 101 H (75-99) mg/dL Calcium 7.4 L (8.4-10.2) mg/dL 10/24/17 Range/Units 07:36 RBC (4.30-5.90) m/uL Hgb (13.0-17.5) gm/dL Hct (39.0-53.0) % ABG pH 7.47 H (7.35-7.45) ABG pO2 66 L (83-108) mmHg ABG HCO3 27 H (21-25) mmol/L ABG Total CO2 28 H (19-24) mmol/L ABG O2 Saturation (94-97) % Creatinine (0.66-1.25) mg/dL Glucose (74-99) mg/dL POC Glucose (mg/dL) (75-99) mg/dL Calcium (8.4-10.2) mg/dL Microbiology - Last 24 Hours (Table) 10/22/17 09:40 Gram Stain - Preliminary Bronchial Washings - Right Bronchial Washings Culture - Preliminary Assessment and Plan Assessment: Assessment #1 acute respiratory failure #2 possible pneumonia #3 acute non-ST deviation myocardial infarction #4 history of coronary artery disease Plan #1 continue the anti-ischemic medication which include aspirin, metoprolol, and statin. Hold Plavix at this point #2 the echocardiogram was reviewed and described above #3 I am concerned about severe underlying coronary artery disease and an acute coronary event giving his abnormal EKG, abnormal troponin, and an echocardiogram finding with wall motion abnormalities concerning for ischemia. #4 a heart catheterization definitely to be done down the line. Thank you for allowing us participate in his care and we'll continue following up with him
[2017-10-24] MEDS: IPRATROPIUM-ALBUTEROL 3 ML NEB INHALATION SCH ×4 (08:22→19:35)
[2017-10-24] MEDS: FUROSEMIDE 10 MG/ML 4 ML VIAL IV SCH ×2 (08:30→20:04)
[2017-10-24] MEDS: PANTOPRAZOLE 40 MG/10 ML VIAL IVP SCH (08:30)
[2017-10-24] MEDS: LISINOPRIL 5 MG TAB PO SCH (08:30)
[2017-10-24] MEDS: CHLORHEXIDINE GLUCONATE 15 ML CUP MUCOUS MEM SCH ×2 (08:30→20:04)
[2017-10-24] MEDS: ASPIRIN 325 MG TAB PO SCH (08:30)
[2017-10-24] MEDS: SENNOSIDES 8.6 MG TAB PO SCH ×2 (08:30→20:05)
[2017-10-24] MEDS: HEPARIN SODIUM,PORCINE 5,000 UNIT/ML 1 ML VIAL SQ SCH ×2 (08:31→20:05)
[2017-10-24] MEDS: METOPROLOL TARTRATE 25 MG TAB PO SCH ×2 (08:31→20:05)
[2017-10-24] MEDS: VANCOMYCIN 1,750 MG in SODIUM CHLORIDE 0.9% 500 ML IVPB SCH ×2 (08:32→20:05)
[2017-10-24] MEDS: MAGNESIUM SULFATE-D5W PMX 1 GM in DEXTROSE/WATER 1 100ML.BAG IVPB SCH ×2 (08:33→13:06)
--- NOTE | 2017-10-24 08:39 | XR ---
EXAMINATION TYPE: XR chest 1V portable DATE OF EXAM: 10/24/2017 COMPARISON: Prior chest 10/23/2017 HISTORY: Intubated TECHNIQUE: Single frontal view of the chest is obtained. FINDINGS: Findings are similar to prior exam. Tubes and line are stable. Bilateral airspace disease, cardiomegaly persists. IMPRESSION: Correlate for pneumonia, congestive heart failure, ARDS.
[2017-10-24] MEDS: fentaNYL (PF) 2,500 MCG in SODIUM CHLORIDE 0.9% 200 ML IV SCH (11:00)
[2017-10-24 11:56] LABS: Glucose,Whole Blood 123 mg/dL (75-99)
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
[2017-10-24 18:02] LABS: Glucose,Whole Blood 88 mg/dL (75-99)
[2017-10-24] MEDS: DEXTROSE 5%-0.45% NACL 1,000 ML IV SCH (18:59)
[2017-10-24] MEDS: ATORVASTATIN 80 MG TAB PO SCH (20:04)
--- NOTE | 2017-10-24 22:19 | PN ---
PROGRESS NOTE SUBJECTIVE: 52-year-old white male who remains on the ventilator. Scheduled for trach and PEG down the road in the next few days. He is not responding to get off the ventilator. Vital signs stable reviewed. Cardiovascular S1-S2. Lungs scattered rhonchi and wheeze. Abdomen soft. Hematology negative Homans. Chest x-ray shows bilateral disease, worsening pneumonia, ARDS. Trach and PEG will be placed once cleared by legal regarding. Abdomen is soft. ASSESSMENT: 1. Acute sepsis. 2. Pneumonia. 3. Paraplegia. 4. Urinary retention. 5. Sacral ulcers. 6. Coronary artery disease. 7. paraplegia. Please see further orders. Awaiting guardian's recommendations and sister's recommendations. ICU note 30 minutes. MMODL / IJN: [id number] /
[2017-10-25 00:21] LABS: Glucose,Whole Blood 118 mg/dL (75-99)
[2017-10-25 05:10] LABS: Anion Gap 4 mmol/L; Blood Urea Nitrogen 15 mg/dL (9-20); Calcium 7.6 mg/dL (8.4-10.2); Carbon Dioxide 29 mmol/L (22-30); Chloride 103 mmol/L (98-107); Glucose 119 mg/dL (74-99); Magnesium 2.1 mg/dL (1.6-2.3); Phosphorus 3.1 mg/dL (2.5-4.5); Potassium 3.6 mmol/L (3.5-5.1); Sodium 136 mmol/L (137-145)
[2017-10-25] MEDS: INSULIN ASPART 100 UNIT/ML 1 ML 10 ML VIAL SQ SCH ×4 (05:12→18:57)
[2017-10-25 05:16] LABS: Basophils % (A) 0 %; Eosinophils # (A) 0.2 k/uL (0-0.7); Eosinophils % (A) 2 %; HCT 32.7 % (39.0-53.0); HGB 10.5 gm/dL (13.0-17.5); Lymphocytes # (A) 1.1 k/uL (1.0-4.8); Lymphocytes % (A) 13 %; MCH 26.6 pg (25.0-35.0); MCV 83.1 fL (80.0-100.0); Mean Platelet Volume 7.4; Monocytes # (A) 0.7 k/uL (0-1.0); Monocytes % (A) 9 %; Neutrophils # (A) 6.1 k/uL (1.3-7.7); Neutrophils % (A) 73 %; Platelet Count 272 k/uL (150-450); RBC 3.93 m/uL (4.30-5.90); WBC 8.3 k/uL (3.8-10.6)
[2017-10-25 06:04] LABS: Glucose,Whole Blood 107 mg/dL (75-99)
[2017-10-25] MEDS: PROPOFOL 1,000 MG in EMPTY BAG 1 BAG IV SCH ×2 (06:46→10:30)
[2017-10-25] MEDS ORDERED: POTASSIUM BICARBONATE/CIT AC 20 MEQ TABLET.EFF NG-TUBE SCH (07:00)
[2017-10-25 07:30] LABS: ABG Base Excess 4.7 mmol/L; ABG HCO3 28 mmol/L (21-25); ABG Oxygen Saturation 96.6 % (94-97); ABG PCO2 35 mmHg (35-45); ABG PH 7.51 (7.35-7.45); ABG PO2 78 mmHg (83-108); ABG TCO2 29 mmol/L (19-24)
[2017-10-25] MEDS: IPRATROPIUM-ALBUTEROL 3 ML NEB INHALATION SCH ×6 (07:38→20:24)
[2017-10-25] MEDS ORDERED: VANCOMYCIN TROUGH DUE 1 EACH MISC MISCELLANE ONE (08:00)
--- NOTE | 2017-10-25 08:14 | P.PN ---
Subjective Progress Note Date: 10/25/17 Principal diagnosis: Acute hypoxic respiratory failure The patient is a 50-year-old gentleman who is currently intubated on ventilator and I was asked to see the patient for abnormal cardiac enzymes. Apparently the history was taken from the chart as well as from the nurse taking care of the patient. The patient does have history of coronary artery disease but he does not follow with any access analyst. Beside that he is a previous smoker. He presented to the emergency room complaining of shortness of breath for the last several days. He was found to be in acute respiratory distress and at that point the patient was intubated. When he presented to the emergency room he was febrile and the chest x-ray showed finding consistent with possible pneumonia. The patient was intubated, started on ventilator, and was started on antibiotic for possible pneumonia. Currently the patient is hemodynamically stable. We get involved in the care of the patient because the cardiac enzymes were checked and came in to be abnormal with abnormal troponin and above 1. The EKG showed sinus rhythm with a Q wave in the anteroseptal leads consistent with prior anterior myocardial infarction with also ST changes in the high lateral leads. On follow-up with the patient today, he continues to be intubated on ventilator. Hemodynamically he continues to be stable. He is on aspirin, metoprolol, SHAWN inhibitor, and statin. The Plavix was held because the patient is going to have a PEG and trach tube if in the next few days. The echocardiogram showed wall motion abnormalities concerning for severe underlying coronary artery disease. The patient failed weaning. The chest x- ray continues to show findings consistent with ARDS/CHF. The patient continues to be on IV Lasix at 40 mg twice a day. Objective - Vital Signs Vital signs: Vital Signs Temp 98.7 F 10/25/17 04:00 Pulse 84 10/25/17 08:06 Resp 28 H 10/25/17 07:00 BP 138/70 10/25/17 07:00 Pulse Ox 97 10/25/17 07:00 Intake & Output 10/24/17 10/25/17 10/25/17 18:59 06:59 18:59 Intake Total 1886 1500 70 Output Total 1260 2150 75 Balance 626 -650 -5 Weight 121.8 kg 123.8 kg Intake: IV 950 1050 50 Dextrose 5%-0.45% NaCl 1, 650 550 50 000 ml @ 50 mls/hr IV . Q20H [facility] Rx#:[id number] Magnesium Sulfate-D5w Pmx 200 1 gm In Dextrose/Water 1 100ml.bag @ 100 mls/hr IVPB Q1H [facility] Rx#: [id number] Meropenem 1 gm In Sodium 100 Chloride 0.9% 100 ml @ 200 mls/hr IVPB Q12H [facility] Rx#:[id number] Vancomycin 1,750 mg In 500 Sodium Chloride 0.9% 500 ml @ 167 mls/hr IVPB Q12HR [facility] Rx#:[id number] Intake, IV Titration 466 100 Amount Propofol 1,000 mg In 300 100 Empty Bag 1 bag @ Titrate IV .Q0M [facility] Rx#: [id number] fentaNYL (PF) 2,500 mcg 166 In Sodium Chloride 0.9% 200 ml @ 1 MCG/KG/HR 10. 54 mls/hr IV .[id number] [facility] Rx#:[id number] Tube Feeding 380 260 20 Other 90 90 Output: Urine 1260 2150 75 Other: Voiding Method Indwelling Catheter Indwelling Catheter - Constitutional General appearance: Present: no acute distress - Respiratory Respiratory: bilateral: wheezing - Cardiovascular Rhythm: regular Heart sounds: normal: S1, S2 - Labs CBC & Chem 7: 10/25/17 04:45 10/25/17 04:45 Labs: Abnormal Lab Results - Last 24 Hours (Table) 10/24/17 10/25/17 10/25/17 Range/Units 11:53 00:19 04:45 RBC (4.30-5.90) m/uL Hgb (13.0-17.5) gm/dL Hct (39.0-53.0) % ABG pH (7.35-7.45) ABG pO2 (83-108) mmHg ABG HCO3 (21-25) mmol/L ABG Total CO2 (19-24) mmol/L Sodium 136 L (137-145) mmol/L Creatinine 0.40 L (0.66-1.25) mg/dL Glucose 119 H (74-99) mg/dL POC Glucose (mg/dL) 123 H 118 H (75-99) mg/dL Calcium 7.6 L (8.4-10.2) mg/dL 10/25/17 10/25/17 10/25/17 Range/Units 04:45 06:02 07:20 RBC 3.93 L (4.30-5.90) m/uL Hgb 10.5 L (13.0-17.5) gm/dL Hct 32.7 L (39.0-53.0) % ABG pH 7.51 H (7.35-7.45) ABG pO2 78 L (83-108) mmHg ABG HCO3 28 H (21-25) mmol/L ABG Total CO2 29 H (19-24) mmol/L Sodium (137-145) mmol/L Creatinine (0.66-1.25) mg/dL Glucose (74-99) mg/dL POC Glucose (mg/dL) 107 H (75-99) mg/dL Calcium (8.4-10.2) mg/dL Microbiology - Last 24 Hours (Table) 10/22/17 09:40 Gram Stain - Final Bronchial Washings - Right Bronchial Washings Culture - Final Assessment and Plan Assessment: Assessment #1 acute respiratory failure #2 possible pneumonia #3 acute non-ST deviation myocardial infarction #4 history of coronary artery disease Plan #1 continue the anti-ischemic medication which include aspirin, metoprolol, and statin. Hold Plavix at this point because the patient might go for PEG and trach tube #2 the echocardiogram was reviewed and described above #3 I am concerned about severe underlying coronary artery disease and an acute coronary event giving his abnormal EKG, abnormal troponin, and an echocardiogram finding with wall motion abnormalities concerning for ischemia. #4 the patient is going to have a PEG and trach tube this coming Saturday. Thank you for allowing us participate in his care and we'll continue following up with him
--- NOTE | 2017-10-25 09:06 | XR ---
EXAMINATION TYPE: XR chest 1V portable DATE OF EXAM: 10/25/2017 COMPARISON: Prior chest 10/24/2017 HISTORY: Intubated TECHNIQUE: Single frontal view of the chest is obtained. FINDINGS: No interval change. IMPRESSION: Differential remains congestive heart failure, pulmonary edema, pneumonia, ARDS. Tubes a nd line are stable and are overlying appropriate positions.
[2017-10-25] MEDS: CHLORHEXIDINE GLUCONATE 15 ML CUP MUCOUS MEM SCH ×2 (09:10→20:44)
[2017-10-25] MEDS: FUROSEMIDE 10 MG/ML 4 ML VIAL IV SCH ×2 (09:10→20:44)
[2017-10-25] MEDS: PANTOPRAZOLE 40 MG/10 ML VIAL IVP SCH (09:10)
[2017-10-25] MEDS: SENNOSIDES 8.6 MG TAB PO SCH ×2 (09:10→20:45)
[2017-10-25] MEDS: LISINOPRIL 5 MG TAB PO SCH (09:10)
[2017-10-25] MEDS: HEPARIN SODIUM,PORCINE 5,000 UNIT/ML 1 ML VIAL SQ SCH ×2 (09:10→20:44)
[2017-10-25] MEDS: METOPROLOL TARTRATE 25 MG TAB PO SCH ×2 (09:10→20:45)
[2017-10-25] MEDS: ASPIRIN 325 MG TAB PO SCH (09:10)
[2017-10-25] MEDS: VANCOMYCIN 1,750 MG in SODIUM CHLORIDE 0.9% 500 ML IVPB SCH ×2 (09:11→20:45)
[2017-10-25 12:11] LABS: Glucose,Whole Blood 92 mg/dL (75-99)
[2017-10-25 13:36] VITALS: BMI 38.0
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
[2017-10-25] MEDS: DEXTROSE 5%-0.45% NACL 1,000 ML IV SCH (14:49)
[2017-10-25] MEDS: fentaNYL (PF) 2,500 MCG in SODIUM CHLORIDE 0.9% 200 ML IV SCH (15:36)
[2017-10-25 18:58] LABS: Glucose,Whole Blood 78 mg/dL (75-99)
[2017-10-25] MEDS: ATORVASTATIN 80 MG TAB PO SCH (20:44)
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
--- NOTE | 2017-10-25 23:44 | PN ---
PROGRESS NOTE SUBJECTIVE: A 52-year-old white male on the ventilator, is unable to be weaned from the ventilator. Dr. Vallejo has convinced the family and the guardian that he should be made comfort care. At this time, patient is to be made comfort care tomorrow per Nursing and will not get a trach and a PEG. Apparently they went to court and got this all approved at the court today. Dr. Vallejo's notes are reviewed. Vital signs are reviewed. He is breathing 27-28 on mechanical vent. Blood pressure 130-137/60s, O2 sat 98-99. Pulse in the 80s. Chest x-ray reviewed shows CHF versus pneumonia versus ARDS. He is resting comfortably on the vent. Lungs are scattered rhonchi and wheeze. HEMATOLOGY: Negative Homans'. PSYCH: He is resting comfortably on the vent. Hemoglobin 10.5, white count is 8.3. Creatinine 0.4, BUN 15, sodium 136, potassium is 3.6, calcium is 7.6. Cardiology, Dr. Hernandez saw the patient, who is going to continue with anti-ischemic medication; aspirin, metoprolol, statin, hold Plavix due to a PEG and trach. Echo is reviewed. As mentioned, comfort care on Saturday per multiple people's request. MMODL / IJN: [id number] /
[2017-10-26 00:57] LABS: Glucose,Whole Blood 93 mg/dL (75-99)
[2017-10-26] MEDS: INSULIN ASPART 100 UNIT/ML 1 ML 10 ML VIAL SQ SCH ×4 (01:00→19:08)
[2017-10-26] MEDS: PROPOFOL 1,000 MG in EMPTY BAG 1 BAG IV SCH ×5 (02:51→23:07)
[2017-10-26 04:29] LABS: Basophils % (A) 0 %; Eosinophils # (A) 0.2 k/uL (0-0.7); Eosinophils % (A) 3 %; HCT 31.4 % (39.0-53.0); HGB 10.3 gm/dL (13.0-17.5); Lymphocytes # (A) 1.2 k/uL (1.0-4.8); Lymphocytes % (A) 17 %; MCHC 32.8 g/dL (31.0-37.0); MCV 82.1 fL (80.0-100.0); Mean Platelet Volume 7.9; Monocytes # (A) 0.7 k/uL (0-1.0); Monocytes % (A) 9 %; Neutrophils # (A) 4.9 k/uL (1.3-7.7); Neutrophils % (A) 69 %; Platelet Count 264 k/uL (150-450); RBC 3.83 m/uL (4.30-5.90); WBC 7.1 k/uL (3.8-10.6)
[2017-10-26 04:46] LABS: Anion Gap 4 mmol/L; Blood Urea Nitrogen 16 mg/dL (9-20); Calcium 7.7 mg/dL (8.4-10.2); Carbon Dioxide 30 mmol/L (22-30); Chloride 103 mmol/L (98-107); Glucose 107 mg/dL (74-99); Magnesium 1.9 mg/dL (1.6-2.3); Phosphorus 3.7 mg/dL (2.5-4.5); Potassium 3.4 mmol/L (3.5-5.1); Sodium 137 mmol/L (137-145)
[2017-10-26 06:35] LABS: Glucose,Whole Blood 92 mg/dL (75-99)
--- NOTE | 2017-10-26 07:21 | XR ---
EXAMINATION TYPE: XR chest 1V portable DATE OF EXAM: 10/26/2017 HISTORY: Tube placement. REFERENCE: Previous study dated 10/25/2017. FINDINGS: The patient is ET tube, NG tube and left internal jugular catheter remain in place, unchang ed in appearance. There continues to be bilateral airspace disease worse in the upper lobes bilaterally. The heart is e nlarged. I could not exclude a left effusion. IMPRESSION: NO SIGNIFICANT INTERVAL CHANGE IN THE APPEARANCE OF THE CHEST.
[2017-10-26] MEDS: IPRATROPIUM-ALBUTEROL 3 ML NEB INHALATION SCH ×4 (07:31→20:48)
[2017-10-26] MEDS ORDERED: VANCOMYCIN TROUGH DUE 1 EACH MISC MISCELLANE ONE (08:00)
[2017-10-26 08:34] LABS: ABG PCO2 39 mmHg (35-45); ABG PH 7.49 (7.35-7.45); ABG PO2 68 mmHg (83-108)
[2017-10-26 08:35] LABS: ABG Base Excess 6.3 mmol/L; ABG HCO3 30 mmol/L (21-25); ABG TCO2 31 mmol/L (19-24)
[2017-10-26] MEDS: PANTOPRAZOLE 40 MG/10 ML VIAL IVP SCH (09:06)
[2017-10-26] MEDS: POTASSIUM BICARBONATE/CIT AC 20 MEQ TABLET.EFF NG-TUBE SCH ×2 (09:06→09:32)
[2017-10-26] MEDS: HEPARIN SODIUM,PORCINE 5,000 UNIT/ML 1 ML VIAL SQ SCH ×2 (09:06→20:20)
[2017-10-26] MEDS: CHLORHEXIDINE GLUCONATE 15 ML CUP MUCOUS MEM SCH ×2 (09:06→20:19)
[2017-10-26] MEDS: FUROSEMIDE 10 MG/ML 4 ML VIAL IV SCH ×2 (09:07→20:19)
[2017-10-26] MEDS: SENNOSIDES 8.6 MG TAB PO SCH ×2 (09:07→20:20)
[2017-10-26] MEDS: ASPIRIN 325 MG TAB PO SCH (09:07)
[2017-10-26] MEDS: MAGNESIUM SULFATE-D5W PMX 1 GM in DEXTROSE/WATER 1 100ML.BAG IVPB SCH ×2 (09:15→10:20)
[2017-10-26] MEDS: METOPROLOL TARTRATE 25 MG TAB PO SCH ×2 (09:32→20:20)
[2017-10-26] MEDS: LISINOPRIL 5 MG TAB PO SCH (09:33)
[2017-10-26] MEDS: VANCOMYCIN 1,750 MG in SODIUM CHLORIDE 0.9% 500 ML IVPB SCH ×2 (10:19→20:20)
[2017-10-26 11:46] LABS: Glucose,Whole Blood 116 mg/dL (75-99)
[2017-10-26] MEDS: DEXTROSE 5%-0.45% NACL 1,000 ML IV SCH (12:47)
--- NOTE | 2017-10-26 13:09 | PN ---
PROGRESS NOTE Mr. Hunter is a 52-year-old male who presented with respiratory distress and respiratory failure, possible aspiration pneumonia. He was intubated on presentation. He remains intubated with inability to wean him off. According to the nursing staff and after talking to the family, the decision was made to make the patient comfort care tomorrow. He remains intubated at this time. Hemodynamically, he is stable. He has no evidence of tachycardia or bradycardia. There is no acute cardiac issues at this point. He continues to be at this time on aspirin, Lipitor 80 mg daily, furosemide 40 mg IV q.12 hours, insulin, lisinopril 5 mg daily, metoprolol tartrate 25 mg twice a day. PHYSICAL EXAMINATION: He is intubated, sedated. Blood pressure running in the 120s with a heart rate in 90s. LUNGS: Clear anteriorly. HEART: Regular rate and rhythm. S1, S2. No S3. No rub. ABDOMEN: Soft. Positive bowel sounds. Extremities +1 edema. LAB DATA: With pH 7.49, pCO2 of size of 39, PO2 of 68. BUN and creatinine 60 and 0.4. IMPRESSION: 1. Respiratory failure with pneumonia, possible aspiration pneumonia with inability to wean and extubate. 2. Sepsis. 3. History of paraplegia. RECOMMENDATION: From the cardiac standpoint, since the decision was made to make him comfort care only, no adjustment of the medical regimen will be done. We will see him on as needed basis. Please feel free to call us for any questions. ZULEIKA / BUCK: [id number] /
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
--- NOTE | 2017-10-26 16:29 | PN ---
PROGRESS NOTE SUBJECTIVE: 52-year-old white male with acute respiratory failure due to community-acquired pneumonia, possible aspiration pneumonia versus CHF versus ARDS. Family wants the patient, apparently the daughter is guardian and Dr. Vallejo wants patient on comfort measures, which will start tomorrow. Currently remains unchanged on the ventilator. Please see further orders. MMODL / IJN: [id number] /
[2017-10-26 18:02] LABS: Glucose,Whole Blood 95 mg/dL (75-99)
[2017-10-26] MEDS: fentaNYL (PF) 2,500 MCG in SODIUM CHLORIDE 0.9% 200 ML IV SCH (19:09)
[2017-10-26] MEDS: ATORVASTATIN 80 MG TAB PO SCH (20:19)
[2017-10-27 00:32] LABS: Glucose,Whole Blood 95 mg/dL (75-99)
[2017-10-27] MEDS: INSULIN ASPART 100 UNIT/ML 1 ML 10 ML VIAL SQ SCH ×4 (01:20→17:51)
[2017-10-27] MEDS: PROPOFOL 1,000 MG in EMPTY BAG 1 BAG IV SCH ×3 (04:15→14:30)
[2017-10-27 05:04] LABS: Anion Gap 4 mmol/L; Blood Urea Nitrogen 17 mg/dL (9-20); Calcium 7.7 mg/dL (8.4-10.2); Carbon Dioxide 31 mmol/L (22-30); Chloride 103 mmol/L (98-107); Glucose 108 mg/dL (74-99); Magnesium 2.1 mg/dL (1.6-2.3); Phosphorus 4.4 mg/dL (2.5-4.5); Potassium 3.5 mmol/L (3.5-5.1); Sodium 138 mmol/L (137-145)
[2017-10-27 05:16] LABS: Basophils % (A) 0 %; Eosinophils # (A) 0.1 k/uL (0-0.7); Eosinophils % (A) 1 %; HCT 31.3 % (39.0-53.0); Lymphocytes # (A) 1.4 k/uL (1.0-4.8); Lymphocytes % (A) 19 %; MCH 26.6 pg (25.0-35.0); MCHC 32.1 g/dL (31.0-37.0); MCV 82.7 fL (80.0-100.0); Monocytes # (A) 0.5 k/uL (0-1.0); Monocytes % (A) 7 %; Neutrophils # (A) 5.1 k/uL (1.3-7.7); Neutrophils % (A) 69 %; Platelet Count 285 k/uL (150-450); RBC 3.78 m/uL (4.30-5.90); WBC 7.4 k/uL (3.8-10.6)
[2017-10-27 06:38] LABS: Glucose,Whole Blood 98 mg/dL (75-99)
[2017-10-27] MEDS: DEXTROSE 5%-0.45% NACL 1,000 ML IV SCH (06:39)
[2017-10-27] MEDS: POTASSIUM BICARBONATE/CIT AC 20 MEQ TABLET.EFF NG-TUBE SCH ×2 (06:39→07:58)
--- NOTE | 2017-10-27 07:14 | XR ---
EXAMINATION TYPE: XR chest 1V portable DATE OF EXAM: 10/27/2017 HISTORY: Tube placement. REFERENCE: Previous study dated 10/26/2017. FINDINGS: The patient is ET tube, NG tube and left internal jugular catheter remain in place, unchang ed in appearance. There is bilateral upper lobe airspace disease, essentially unchanged from previous. The heart is enl arged. There are small, bilateral effusions. IMPRESSION: NO SIGNIFICANT INTERVAL CHANGE IN APPEARANCE OF THE CHEST.
[2017-10-27] MEDS: IPRATROPIUM-ALBUTEROL 3 ML NEB INHALATION SCH ×4 (07:32→20:16)
[2017-10-27] MEDS: PANTOPRAZOLE 40 MG/10 ML VIAL IVP SCH (07:59)
[2017-10-27] MEDS: HEPARIN SODIUM,PORCINE 5,000 UNIT/ML 1 ML VIAL SQ SCH (07:59)
[2017-10-27] MEDS: ASPIRIN 325 MG TAB PO SCH (07:59)
[2017-10-27] MEDS: CHLORHEXIDINE GLUCONATE 15 ML CUP MUCOUS MEM SCH (07:59)
[2017-10-27] MEDS: SENNOSIDES 8.6 MG TAB PO SCH (07:59)
[2017-10-27] MEDS: LISINOPRIL 5 MG TAB PO SCH (07:59)
[2017-10-27] MEDS: METOPROLOL TARTRATE 25 MG TAB PO SCH ×2 (07:59→22:24)
[2017-10-27] MEDS: FUROSEMIDE 10 MG/ML 4 ML VIAL IV SCH (07:59)
[2017-10-27] MEDS: VANCOMYCIN 1,750 MG in SODIUM CHLORIDE 0.9% 500 ML IVPB SCH (08:01)
[2017-10-27 08:15] LABS: ABG Base Excess 7.7 mmol/L; ABG HCO3 31 mmol/L (21-25); ABG Oxygen Saturation 96.5 % (94-97); ABG PCO2 38 mmHg (35-45); ABG PH 7.52 (7.35-7.45); ABG PO2 80 mmHg (83-108); ABG TCO2 32 mmol/L (19-24)
[2017-10-27 11:49] LABS: Glucose,Whole Blood 112 mg/dL (75-99)
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
[2017-10-27] MEDS ORDERED: fentaNYL (PF) 50 MCG/ML 2 ML AMP IV PRN (13:27)
[2017-10-27] MEDS ORDERED: HYDROmorphone 0.5 MG/0.5 ML SYRINGE IVP PRN (13:27)
[2017-10-27] MEDS ORDERED: LIDOCAINE 1% 20 ML VIAL (10MG/ML) FOR IV START INTRADERMA PRN (13:27)
[2017-10-27] MEDS ORDERED: MIDAZOLAM 2 MG/2 ML VIAL IV PRN (13:27)
[2017-10-27] MEDS ORDERED: LACTATED RINGERS 1,000 ML IV SCH (13:30)
[2017-10-27] MEDS: fentaNYL (PF) 2,500 MCG in SODIUM CHLORIDE 0.9% 200 ML IV SCH (15:08)
[2017-10-27 17:44] VITALS: TEMP 98.9
[2017-10-27 17:50] LABS: Glucose,Whole Blood 86 mg/dL (75-99)
[2017-10-27] MEDS ORDERED: ONDANSETRON 4 MG/2 ML VIAL IVP PRN (21:28)
[2017-10-27] MEDS ORDERED: MORPHINE SULFATE 4 MG/ML SYRINGE IV PRN (21:28)
[2017-10-27] MEDS ORDERED: SCOPOLAMINE 1.5MG/72HR PATCH TRANSDERM PRN (21:28)
[2017-10-27] MEDS ORDERED: ATROPINE OPHTH SOLN 1% 5ML BTL SUBLINGUAL PRN (21:28)
[2017-10-27] MEDS ORDERED: MORPHINE SULFATE 2 MG/ML SYRINGE IV PRN (21:28)
[2017-10-27] MEDS ORDERED: LORazepam 2 MG/ML INJ IV PRN (21:28)
[2017-10-27] MEDS ORDERED: MORPHINE SULFATE (100 MG/2 ML) 100 MG in SODIUM CHLORIDE 0.9% 100 ML IV SCH (22:00)
[2017-10-27 22:36] VITALS: BP 106/49; PULSE 126; RESP 42
== END 2017-10-27 23:08 | disposition expired | DRG 853 ==
LOC: EC 12:33 → 6ICU 18:18
PROVIDERS: ADMIT Family Medicine; ATTEND Family Medicine
PROC: 5A1955Z Respiratory Ventilation, Greater than 96 Consecutive Hours (ICD-10-PCS; principal; 2017-10-17)
PROC: 0BH18EZ Insertion of Endotracheal Airway into Trachea, Via Natural or Artificial Opening Endoscopic (ICD-10-PCS; principal; 2017-10-17)
PROC: 0B9C8ZZ Drainage of Right Upper Lung Lobe, Via Natural or Artificial Opening Endoscopic (ICD-10-PCS; 2017-10-22)
DX: A41.9 Sepsis, unspecified organism (principal); L89.153 Pressure ulcer of sacral region, stage 3; L89.323 Pressure ulcer of left buttock, stage 3; G93.41 Metabolic encephalopathy; I21.4 Non-ST elevation (NSTEMI) myocardial infarction; J69.0 Pneumonitis due to inhalation of food and vomit; J96.01 Acute respiratory failure with hypoxia; J96.02 Acute respiratory failure with hypercapnia; J15.9 Unspecified bacterial pneumonia; I50.41 Acute combined systolic (congestive) and diastolic (congestive) heart failure; G82.20 Paraplegia, unspecified; I42.9 Cardiomyopathy, unspecified; L97.929 Non-pressure chronic ulcer of unspecified part of left lower leg with unspecified severity; N39.0 Urinary tract infection, site not specified; T14.90XS Injury, unspecified, sequela; T14.8XXS Other injury of unspecified body region, sequela; V49.9XXS Car occupant (driver) (passenger) injured in unspecified traffic accident, sequela; I11.0 Hypertensive heart disease with heart failure; I25.10 Atherosclerotic heart disease of native coronary artery without angina pectoris; I25.2 Old myocardial infarction; I50.9 Heart failure, unspecified; I73.9 Peripheral vascular disease, unspecified; R79.1 Abnormal coagulation profile; Z51.5 Encounter for palliative care; Z66 Do not resuscitate; Z79.82 Long term (current) use of aspirin; Z79.899 Other long term (current) drug therapy; Z86.14 Personal history of Methicillin resistant Staphylococcus aureus infection; Z86.73 Personal history of transient ischemic attack (TIA), and cerebral infarction without residual deficits; Z87.891 Personal history of nicotine dependence; Z90.12 Acquired absence of left breast and nipple; Z90.5 Acquired absence of kidney; Z91.19 Patient's noncompliance with other medical treatment and regimen; Z95.5 Presence of coronary angioplasty implant and graft; Z88.0 Allergy status to penicillin; Z99.3 Dependence on wheelchair
CPT/HCPCS: 31500; 31624; 36415; 36600; 51702; 70450; 71045; 71275; 80048; 80053; 80202; 80306; 81001; 82550; 82553; 82805; 83735; 83880; 84100; 84132; 84484; 85025; 85379; 85610; 85730; 87040; 87070; 87086; 87102; 87116; 87205; 87206; 87252; 87496; 87498; 87502; 87529; 87541; 87581; 87634; 87798; 89050; 93005; 93306; 94002; 94003; 94640; 96365; 96366; 96367; 96372; 96375; 96376; 99291